=== PATIENT | male | born 1985 | race Caucasian/White ===

== ENCOUNTER 2016-11-01 00:11 | Inpatient (IN) | payer MEDICAID, OTHER ==
[2016-11-01 00:13] VITALS: BMI 23.7
[2016-11-01] MEDS ORDERED: Sodium Chloride 0.9% 1,000 ML IV STA (00:41)
--- NOTE | 2016-11-01 00:44 | ED PDOC ---
Arrival/HPI - General Historian: Patient - History of Present Illness Time/Duration: 1 week Symptom Onset: Gradual Symptom Course: Worsening Severity Level: 1 <Lesia Vidal - Last Filed: 11/01/16 01:54> <Jose R Garcia - Last Filed: 11/01/16 04:04> - General Chief Complaint: Psychiatric Evaluation Time Seen by Provider: 11/01/16 00:25 - History of Present Illness Narrative History of Present Illness (Text): 11/01/16 00:42 31-year-old male with a history of depression and anxiety presents today with suicidal ideations. Patient states he hasn't been sleeping and hasn't been eating for the past week or so. Patient states he has been shooting up with cocaine. He denies chest pain or shortness of breath. Denies abdominal pain. He is complaining of generalized body aches. Denies fevers or chills. Denies urinary symptoms. Denies suicidal plan. (Lesia Vidal) Past Medical History - Provider Review Nursing Documentation Reviewed: Yes - Travel History Have you recently traveled outside [place] w/in the past 3 mons?: No - Tetanus Immunization Tetanus Immunization: Unknown - Cardiac Hx Cardiac Disorders: No Hx Hypertension: No - Pulmonary Hx Respiratory Disorders: No Hx Tuberculosis: No - Neurological Hx Neurological Disorder: No HX Cerebrovascular Accident: No Hx Seizures: No - HEENT Hx HEENT Disorder: No - Renal Hx Renal Disorder: No - Endocrine/Metabolic Hx Endocrine Disorders: No - Hematological/Oncological Hx Blood Disorders: No Hx Hepatitis C: Yes - Integumentary Hx Dermatological Disorder: No - Musculoskeletal/Rheumatological Hx Musculoskeletal Disorders: No - Gastrointestinal Hx Gastrointestinal Disorders: No - Genitourinary/Gynecological Hx Genitourinary Disorders: No Hx Sexually Transmitted Diseases: No - Psychiatric Hx Anxiety: Yes Hx Depression: Yes Hx Substance Use: Yes (cocaine 4 hrs ago) - Past Surgical History Past Surgical History: No Previous - Anesthesia Hx Anesthesia: No - Suicidal Assessment Feels Threatened In Home Enviroment: No <Lesia Vidal - Last Filed: 11/01/16 01:54> Family/Social History - Physician Review Nursing Documentation Reviewed: Yes Family/Social History: Unknown Family HX Smoking Status: Heavy Smoker > 10 Cigarettes Daily Hx Alcohol Use: No Hx Substance Use: Yes (cocaine 4 hrs ago) Substance used: herion, cocaine, xanax, ambien Hx Substance Use Treatment: Yes <Lesia Vidal Last Filed: 11/01/16 01:54> Allergies/Home Meds <Lesia Vidal Last Filed: 11/01/16 01:54> <Jose R Garcia Last Filed: 11/01/16 04:04> Allergies/Adverse Reactions: Allergies No Known Allergies Allergy (Verified 11/01/16 00:30) Home Medications: Home Meds Medication Instructions Recorded Confirmed ALPRAZolam [Xanax] 1 mg PO DAILY 11/01/16 11/01/16 Buprenorphine HCl/Naloxone HCl 1 each SL DAILY 11/01/16 11/01/16 [Suboxone 8 mg-2 mg Sl Film] Review of Systems - Review of Systems Constitutional: Fatigue. absent: Fevers Respiratory: absent: SOB, Cough Cardiovascular: absent: Chest Pain, Palpitations Gastrointestinal: absent: Abdominal Pain, Nausea, Vomiting Genitourinary Male: absent: Dysuria, Frequency, Hematuria Musculoskeletal: absent: Arthralgias, Back Pain, Neck Pain Skin: absent: Rash, Pruritis Neurological: absent: Headache, Dizziness Psychiatric: Anxiety, Depression, Suicidal Ideation <Lesia Vidal Last Filed: 11/01/16 01:54> Physical Exam Vital Signs Reviewed: Yes Temperature: Afebrile Blood Pressure: Normal Pulse: Tachycardic Respiratory Rate: Normal Appearance: Positive for: Well-Appearing, Non-Toxic, Comfortable Pain Distress: None Mental Status: Positive for: Alert and Oriented X 3 - Systems Exam Head: Present: Atraumatic Neck: Present: Normal Range of Motion Respiratory/Chest: Present: Clear to Auscultation Cardiovascular: Present: Tachycardic Abdomen: Present: Normal Bowel Sounds. No: Tenderness, Distention, Peritoneal Signs Upper Extremity: Present: Normal Inspection, Normal ROM Lower Extremity: Present: Normal Inspection, Normal ROM Neurological: Present: GCS=15, Speech Normal Skin: Present: Warm, Dry, Normal Color. No: Rashes Psychiatric: Present: Alert, Oriented x 3, Depressed Mood <Lesia Vidal Last Filed: 11/01/16 01:54> Medical Decision Making <Lesia Vidal Last Filed: 11/01/16 01:54> <Jose R Garcia Filed: 11/01/16 04:04> ED Course and Treatment: 11/01/16 00:44 Patient is nontoxic well-appearing in no distress CBC WNL CMP WNL Tylenol WNL Salicylate WNL Alcohol level WNL Urine drug screen pending UA; pending cxr: wnl ekg normal sinus rhythm at 81 bpm incomplete right bundle branch block. normal axis and normal intervals no ST elevations 11/01/16 01:51 case signed out to dr. garcia pending Urine and disposition. (Lesia Vidal) 11/01/16 04:02 Pt seen and evaluated by PES screener, who discussed case with psychiatrist conductor yard. Pt will be admitted to behavioral health for bipolar disorder and polysubstance abuse under Dr. Jacobs's service. Pt agreeable with plan. ( Jose R Garcia) - Lab Interpretations Lab Results: 11/01/16 01:00 11/01/16 01:00 Lab Results 11/01/16 02:05: Urine Opiates Screen Negative, Urine Methadone Screen Negative, Ur Barbiturates Screen Negative, Ur Phencyclidine Scrn Negative, Ur Amphetamines Screen Negative, U Benzodiazepines Scrn Positive H, U Oth Cocaine Metabols Positive H, U Cannabinoids Screen Negative 11/01/16 01:45: Urine Color Yellow, Urine Appearance Clear, Urine pH 7.0, Ur Specific [place] 1.010, Urine Protein Negative, Urine Glucose (UA) Negative, Urine Ketones Negative, Urine Blood Negative, Urine Nitrate Negative, Urine Bilirubin Negative, Urine Urobilinogen 1.0 H, Ur Leukocyte Esterase Negative 11/01/16 01:00: Alcohol, Quantitative < 10 11/01/16 01:00: Salicylates < 1 L, Acetaminophen < 10.0 L 11/01/16 01:00: Sodium 138, Potassium 4.1, Chloride 100, Carbon Dioxide 29, Anion Gap 13, BUN 13, Creatinine 0.8, Est GFR ( Amer) > 60, Est GFR (Non- Af Amer) > 60, Random Glucose 77, Calcium 9.3, Total Bilirubin 0.4, AST 31, ALT 25, Alkaline Phosphatase 69, Total Creatine Kinase 103, Total Protein 6.9, Albumin 4.3, Globulin 2.5, Albumin/Globulin Ratio 1.7 11/01/16 01:00: WBC 8.4, RBC 4.29, Hgb 11.6 L, Hct 34.2 L, MCV 79.7 L, MCH 27.0 , MCHC 33.9, RDW 13.4, Plt Count 239, MPV 9.2, Gran % 65.7, Lymph % (Auto) 25.7 , [place] % (Auto) 6.0, Eos % (Auto) 2.4, Baso % (Auto) 0.2, Gran # 5.53, Lymph # 2.2, [place] # 0.5, Eos # 0.2, Baso # 0.02 - RAD Interpretation Radiology Orders: 11/01/16 00:41 CHEST PORTABLE [RAD] Stat - Medication Orders Current Medication Orders: Discontinued Medications Sodium Chloride (Sodium Chloride 0.9%) 1,000 mls @ 999 mls/hr IV .Q1H1M STA Stop: 11/01/16 01:41 Disposition/Present on Arrival - Present on Arrival History of DVT/PE: No History of Uncontrolled Diabetes: No Urinary Catheter: No History of Decub. Ulcer: No History Surgical Site Infection Following: None <Lesia Vidal - Last Filed: 11/01/16 01:54> - Present on Arrival Any Indicators Present on Arrival: No History of DVT/PE: No History of Uncontrolled Diabetes: No Urinary Catheter: No History of Decub. Ulcer: No History Surgical Site Infection Following: None - Disposition Have Diagnosis and Disposition been Completed?: Yes Disposition Time: 04:04 Patient Plan: Admission <Jose R Garcia - Last Filed: 11/01/16 04:04> - Disposition Diagnosis: Bipolar II disorder, Polysubstance dependence Disposition: HOSPITALIZED Condition: STABLE Forms: [employer] (German)
[2016-11-01 01:27] LABS: BASO # 0.02 K/mm3 (0.0-2.0); BASO % 0.2 % (0.0-3.0); EOS # 0.2 (0.0-0.7); EOS % 2.4 % (1.5-5.0); GRAN # 5.53 (1.4-6.5); GRAN % 65.7 % (50.0-68.0); HEMOGLOBIN 11.6 gm/dL (14.0-18.0); LYMPH # 2.2 (1.2-3.4); LYMPH % 25.7 % (22.0-35.0); MEAN CELL VOLUME 79.7 fL (80.0-105.0); MEAN CORPUSCULAR HGB CONC 33.9 g/dl (31.0-37.0); MEAN PLATELET VOLUME 9.2 fl (7.0-11.0); MONO # 0.5 (0.1-0.6); PLATELET COUNT 239 10^3/uL (120.0-450.0); RBC 4.29 10^6/uL (3.5-6.1); RED CELL DISTRIBUTION WIDTH 13.4 % (11.5-14.5); WHITE BLOOD COUNT 8.4 10^3/ul (4.5-11.0)
[2016-11-01 01:33] LABS: ALB/GLOB RATIO 1.7 (1.1-1.8); ALBUMIN 4.3 g/dL (3.0-4.8); ALT/SGPT 25 U/L (7-56); AST/SGOT 31 U/L (15-59); BLOOD UREA NITROGEN 13 mg/dL (7-21); CALCIUM 9.3 mg/dL (8.4-10.5); GFR AFRICAN-AMERICAN > 60; GFR NON-AFRICAN AMERICAN > 60
[2016-11-01 01:34] LABS: SALICYLATE < 1 mg/dL (2.0-20.0)
[2016-11-01 02:01] LABS: ACETAMINOPHEN < 10.0 ug/ml (10.0-20.0)
[2016-11-01 02:22] LABS: URINE BILIRUBIN NEGATIVE (NEGATIVE); URINE BLOOD NEGATIVE (NEGATIVE); URINE GLUCOSE (UA) NEGATIVE (NEGATIVE); URINE LEUKOCYTE ESTERASE NEGATIVE Leu/uL (NEGATIVE); URINE NITRATE NEGATIVE (NEGATIVE); URINE PROTEIN NEGATIVE mg/dL (<30 mg/dL)
[2016-11-01 02:34] LABS: URINE APPEARANCE CLEAR (CLEAR); URINE COLOR YELLOW (YELLOW)
[2016-11-01 03:13] LABS: BARBITURATES, UR NEGATIVE (NEGATIVE); BENZODIAZEPINES, UR POSITIVE (NEGATIVE); OPIATES, UR NEGATIVE (NEGATIVE); PHENCYCLIDINE, UR NEGATIVE (NEGATIVE)
[2016-11-01] MEDS ORDERED: Magnesium Hydroxide Susp 30 ml UD PO PRN (05:22)
[2016-11-01] MEDS ORDERED: Alum-Mag Hydrox-Simethicone Susp (30 mL) PO PRN (05:22)
--- NOTE | 2016-11-01 06:44 | PCM.BM ---
<Bossman Prado - Last Filed: 11/01/16 06:41> Treatment Plan Problems - Problems identified on initial assessmt depression Date Initiated: 11/01/16 Time Initiated: 05:00 Assessment reference: NA Status: Active substance abuse Date Initiated: 11/01/16 Time Initiated: 05:00 Assessment reference: NA Status: Active Treatment assets and liabiliti Patient Assests: cooperative, ADL independent, good past tx response Patient Liabilities: substance abuse - Milieu Protocol Maintain good personal hygiene: daily Encourage regular showers, daily Remind patient to perform daily oral care Conduct patient checks and document Observation sheet: Q15 minutes Maintain personal safety: daily Educate patient to report safety concerns to staff, every shift Monitor environment for contraband/sharps Medication safety: Monitor for expected outcome, potential side effects: daily, Assess barriers to learning: daily, Assess readiness for medication education: daily Family Contact Family involvement: Family/SO is involved Family contact: Patient agrees to contact Family contact name: Traci Discharge/Continuing Care - Education Needs Education Needs: Patient Medication, Patient Diagnosis/Disease Process, Patient Coping Skills, Patient Activities of Daily Living, Patient Health Practices/ Safety, Patient Personal Hygiene/Grooming - Discharge Discharge Criteria: Free of Suicidal thoughts, Normal sleep pattern, No longer exhibiting s/s of withdrawal <Desi Jacobs - Last Filed: 11/01/16 16:41> - Diagnosis (1) Bipolar II disorder Status: Acute Interventions: 11/01/16 16:41 Psychoeducation Psychopharmacology/adjustment of medications as needed/ monitoring possible side effects Monitor blood level of mood stabilizers Evaluate pt on daily basis Compliance with medications and follow up appointments Suicide and homicide risk assessment and prevention, coping strategies, safety plan Relapse prevention Reduction of symptoms Improve functional status Family intervention As outpatient: cognitive behavioral therapy (2) Polysubstance dependence Status: Acute Interventions: 11/01/16 16:42 Monitoring withdrawal symptoms Medical detoxification Pharmacotherapy for alcohol/benzos/opioid dependence Maintaining sobriety Relapse prevention Possible rehabilitation Motivational interviewing 12-step programs: AA meetings <Omar Lui - Last Filed: 11/01/16 19:14> Treatment assets and liabiliti Patient Assests: cooperative, educated, insightful, self-reliant, ADL independent, physically healthy, good support system, negotiates basic needs, cognitively intact Patient Liabilities: substance abuse - Milieu Protocol Maintain good personal hygiene: every shift Encourage regular showers, every shift Remind patient to perform daily oral care, every shift Assist patient to perform ADL's Maintain personal safety: every shift Educate patient to report safety concerns to staff, every shift Monitor environment for contraband/sharps Medication safety: Monitor for expected outcome, potential side effects: every shift, Assess barriers to learning: every shift, Assess readiness for medication education: every shift Discharge/Continuing Care - Education Needs Education Needs: Patient Medication, Patient Diagnosis/Disease Process, Patient Coping Skills - Discharge Discharge Criteria: Tolerates medication w/o severe side effects <Debbie Edwards - Last Filed: 11/11/16 08:19> Family Contact Family involvement: Patient does not wish Family/SO involvement
[2016-11-01 08:26] LABS: GLUCOSE,FASTING 93 mg/dL (65-110); HDL CHOLESTEROL 41 mg/dL (29-60)
[2016-11-01 08:36] LABS: LDL CHOLESTEROL 60 mg/dL (0-129)
--- NOTE | 2016-11-01 09:47 | RAD ---
HISTORY: pes COMPARISON: 08/14/2014 FINDINGS: LUNGS: No active pulmonary disease. PLEURA: No significant pleural effusion identified, no pneumothorax apparent. CARDIOVASCULAR: Normal. OSSEOUS STRUCTURES: No significant abnormalities. VISUALIZED UPPER ABDOMEN: Normal. OTHER FINDINGS: None. IMPRESSION: No active disease.
--- NOTE | 2016-11-01 10:07 | CARD ---
APPROVED REPORT EKG Measurement Heart [id number] <Conclusion> Normal sinus rhythm Incomplete right bundle branch block No change
--- NOTE | 2016-11-01 15:13 | PCM.PSYCH ---
Initial Psychiatric Evaluation - Initial Psychiatric Evaluation Type of Admission: Voluntary Legal Status: Capacity (pt has capacity to sign consent for tx. ) Chief Complaint (in patient's own words): "I wanted to , that is why I am here" Patient's Reaction to Hospitalization: pt was admitted for eval of depressive symptoms, possible suicidal ideation with no plan to kill himself. History of Present Illness and Precipitating Events: Shortly pt is 31yo [place] descent male with self reported history of depression , h/o polysubstance abuse and dependence, two prior hospitalizations in this facility about two years ago, currently unemployed, lives with parents, was brought to the hospital for evaluation of depressive symptoms as well as possible suicidal ideation, no plan or intent of killing himself. Pt was seen and examined at the tx team meeting, discussed with staff, labs reviewed. Pt presented to be with good personal hygiene, not shaved, appears to be depressed, hopeless, difficulties to concentrate and stay focused, overall was pleasant and socially appropriate, fare ADLs. pt said that he was clean and sober for the past two years, pt said that he started to feel depressed "low energy" about two months ago "it was getting worse", pt started to go to his PMD and asked for Adderal, benzos, suboxone, as well as relapsed on the cocaine. pt said that he was using cocaine IV 50$ a day. pt said that this situation is making him very depressed and hopeless, pt said that he wanted to and that is why he came to the hospital. pt said that he does not hear voices or seeing things. denied paranoid ideation. pt also reported no anxiety symptoms. but as per previous report pt has TESFAYE. past psych h/o: pt had one suicidal attempt in 2014, overdosed on drugs, h/o opioid addiction. pt was going to [facility], but stopped going there two months ago, h/ o hypomanic episodes, was doing well on [place] asked to be resumed. Medical h/o: pt has h/o low testosteron, pt is on testosterone shots, hep C antibody positive but as per ID team from last admission, pt has no active disease. Education: pt reported to be in regular class and regular school "I was very smart, straight A student", no behavioral issues, had good childhood and a lot of friends. pt does not want his parents to be involved into his care. 11/01/16 01:00 11/01/16 01:00 Lab Results 11/01/16 07:45: TSH 3rd Generation 1.26 11/01/16 07:45: Fasting Glucose 93, Triglycerides 36, Cholesterol 112 L, LDL Cholesterol Direct 60, HDL Cholesterol 41 11/01/16 02:05: Urine Opiates Screen Negative, Urine Methadone Screen Negative, Ur Barbiturates Screen Negative, Ur Phencyclidine Scrn Negative, Ur Amphetamines Screen Negative, U Benzodiazepines Scrn Positive H, U Oth Cocaine Metabols Positive H, U Cannabinoids Screen Negative 11/01/16 01:45: Urine Color Yellow, Urine Appearance Clear, Urine pH 7.0, Ur Specific [place] 1.010, Urine Protein Negative, Urine Glucose (UA) Negative, Urine Ketones Negative, Urine Blood Negative, Urine Nitrate Negative, Urine Bilirubin Negative, Urine Urobilinogen 1.0 H, Ur Leukocyte Esterase Negative 11/01/16 01:00: Alcohol, Quantitative < 10 11/01/16 01:00: Salicylates < 1 L, Acetaminophen < 10.0 L 11/01/16 01:00: Sodium 138, Potassium 4.1, Chloride 100, Carbon Dioxide 29, Anion Gap 13, BUN 13, Creatinine 0.8, Est GFR ( Amer) > 60, Est GFR (Non- Af Amer) > 60, Random Glucose 77, Calcium 9.3, Total Bilirubin 0.4, AST 31, ALT 25, Alkaline Phosphatase 69, Total Creatine Kinase 103, Total Protein 6.9, Albumin 4.3, Globulin 2.5, Albumin/Globulin Ratio 1.7 11/01/16 01:00: WBC 8.4, RBC 4.29, Hgb 11.6 L, Hct 34.2 L, MCV 79.7 L, MCH 27.0 , MCHC 33.9, RDW 13.4, Plt Count 239, MPV 9.2, Gran % 65.7, Lymph % (Auto) 25.7 , [place] % (Auto) 6.0, Eos % (Auto) 2.4, Baso % (Auto) 0.2, Gran # 5.53, Lymph # 2.2, [place] # 0.5, Eos # 0.2, Baso # 0.02 Vital Signs Temp Pulse Resp BP Pulse Ox 11/01/16 06:54 97.3 F L 70 16 124/79 100 11/01/16 04:26 69 18 126/86 95 11/01/16 01:37 82 16 94 L 11/01/16 00:31 97.9 F 110 H 20 122/77 95 Current Medications: Active Medications Generic Name Dose Route Start Last Admin Trade Name Freq PRN Reason Stop Dose Admin Acetaminophen 650 mg 11/01/16 05:22 Tylenol 325mg Tab PO Q4H PRN Pain, Mild (1-3) Al Hydrox/Mg Hydrox/Simethicone 30 ml 11/01/16 05:22 Maalox Plus 30 Ml PO DAILY PRN Upset Stomach Bupropion HCl 75 mg 11/01/16 16:00 Wellbutrin PO BID RUY Clonazepam 1 mg 11/01/16 13:00 11/01/16 14:31 Klonopin PO 1 mg TID RUY Administration Protocol [place] Carbonate 300 mg 11/01/16 16:00 [place] Carbonate 300mg PO BID RUY Magnesium Hydroxide 30 ml 11/01/16 05:22 Milk Of Magnesia PO DAILY PRN Constipation Mirtazapine 15 mg 11/01/16 11:51 Remeron PO HS PRN Insomnia Past Psychiatric History - Past Psychiatric History Previous Treatment History: Inpatient Prior Professional Help: see HPI Prior Psychiatric Treatment: see HPI At what hospital: see HPI Duration: see HPI Nature of Treatment: see HPI Explanation of prior treatment: see HPI History of Abuse: denied History of ETOH/Drug Use: see HPI History of Family Illness: denied Pertinent Medical Hx (Current Medical&Sleep Prob, Allergies): Allergies Allergy/AdvReac Type Severity Reaction Status Date / Time No Known Allergies Allergy Verified 11/01/16 06:07 ALPRAZolam [Xanax] 1 mg PO DAILY 11/01/16 Buprenorphine HCl/Naloxone HCl [Suboxone 8 mg-2 mg Sl Film] 1 each SL DAILY Review of Systems - Review of Systems Systems not reviewed;Unavailable: Acuity of Condition - EENT Eyes: As Per HPI Ears: As Per HPI Nose/Mouth/Throat: As Per HPI - Cardiovascular Cardiovascular: As Per HPI - Respiratory Respiratory: As Per HPI - Gastrointestinal Gastrointestinal: As Per HPI - Genitourinary Genitourinary: As Per HPI - Reproductive: Male Reproductive:Male: As Per HPI - Musculoskeletal Musculoskeletal: As Par HPI - Integumentary Integumentary: As Per HPI - Neurological Neurological: As Per HPI - Psychiatric Psychiatric: As Per HPI - Endocrine Endocrine: As Per HPI - Hematologic/Lymphatic Hematologic: As Per HPI Mental Status Examination - Personal Presentation Personal Presentation: Looks stated age - Affect Affect: Flat - Motor Activity Motor Activity: Psychomotor Retardation - Reliability in Providing Information Reliability in Providing Information: Fair - Speech Speech: Organized - Mood Mood: Depressed - Formal Thought Process Formal Thought Process: No Impairment - Obsessions/Compulsions Obsessions: None Compulsions: None - Cognitive Functions Orientation: Person, Place, Situation Sensorium: Alert Attention/Concentration: Easily distracted Abstract Thinking: [place] Estimate of Intelligence: Average Judgement: Intact, as evidence by: Insight regarding need for hospitalization - Risk Risk: Withdrawal, Self-mutilation - Strength & Assets Inventory Strength & Assets Inventory: Intelligence, Family support, Cooperative - Limitations Limitations: Other (chronic substance abuser, noncompliant with tx ) DSM 5 DX - DSM 5 DSM 5 Diagnosis: bipolar II as per h/o r/o substance induced mood disorder polysubstance abuse and dependence (benzos, cocaine, amphetamines, opioids) - Recommended/Plan of Treatment Treatment Recommendations and Plan of Treatment: milieu/structure/supportive therapy will d/c xanax, will give klonopin 1mg tid with the plan to taper it off, to avoid possible withdrawal seizures( h/o withdrawal seizures) will d/c suboxone, will start methadone 25mg with the plan to taper it down will start [place] 300mg bid for mood stabilization wellbutrin 75mg po bid for mdd remeron 15mg hs prn for insomnia and depression SW evaluation for possible rehab will monitor closely Projected ELOS: 7days Prognosis: guarded Discharge Plan and Discharge Criteria: Pt will be not depressed or manic, will be more hopeful, will be not psychotic or anxious, will be not having thoughts of harming self or others, will be tolerating medications well, will not have major side effects, will be able to function, will not pose threat to self or others. - Smoking Cessation Smoking Cessation Initiated: No Reason for not providing: denied smoking
--- NOTE | 2016-11-01 17:54 | CP.PCM.CON ---
<Eddie Knight - Last Filed: 11/01/16 17:51> History of Present Illness - History of Present Illness History of Present Illness: Patient is a 31 year old male with a past medical history of hepatitis C, anemia , anxiety and depression, who presented with suicidal ideation. He complains of extreme fatigue for the past 3 months and generalized joint/bone pain. Pt states the pain is resolved after he gets moving in the morning. He reports sleeping more in the past three months. He smokes cigarettes and uses cocaine ( IV route) but denies alcohol use. He denies associated fever, chills, n/v/d. PMH: hepatitis C, anemia, anxiety and depression PSH: none Allergies: denies FMH: mother has HTN, grandmother had lung cancer Social: smokes 1 ppd for 10 years, uses cocaine, history of heroin use, denies alcohol usage Meds: - Xanax - Suboxone Review of Systems - Hematologic/Lymphatic Additional comments: Constitutional: pt denies fever, chills, generalized weakness ENT: pt denies dysphagia, otalgia, hearing deficit, rhinorrhea Eyes: pt denies sudden loss of vision, diplopia, blurred vision MSK: pt denies muscle stiffness, extremity cramping Cardio: pt denies heart murmur, cp Pulm: pt denies sob, cough, hemoptysis, wheeze GI: pt denies loss of appetite, abdominal pain, constipation, melena, n/v/d : pt denies burning on urination, urinary frequency, hematuria, urinary urgency Neuro: pt denies paresis, V[place]AZ[place], paresthesia, dizziness, numbness, tingling Derm: pt denies nail changes Endo: pt denies night sweats, polydipsia Psych: + anxiety, depression Past Patient History - Tetanus Immunizations Tetanus Immunization: Unknown - Past Social History Smoking Status: Heavy Smoker > 10 Cigarettes Daily Alcohol: None Drugs: Cocaine, Other (history of heroin) - CARDIAC Hx Cardiac Disorders: No Hx Hypertension: No - PULMONARY Hx Tuberculosis: No - NEUROLOGICAL HX Cerebrovascular Accident: No Hx Seizures: No - HEENT Hx HEENT Problems: No - RENAL Hx Chronic Kidney Disease: No - ENDOCRINE/METABOLIC Hx Endocrine Disorders: No - HEMATOLOGICAL/ONCOLOGICAL Hx Blood Disorders: No Hx Hepatitis C: Yes - INTEGUMENTARY Hx Dermatological Problems: No - MUSCULOSKELETAL/RHEUMATOLOGICAL Hx Musculoskeletal Disorders: No - GASTROINTESTINAL Hx Gastrointestinal Disorders: No - GENITOURINARY/GYNECOLOGICAL Hx Sexually Transmitted Disorders: No - PSYCHIATRIC Hx Bipolar Disorder: Yes Hx Depression: Yes Hx Substance Use: Yes - SURGICAL HISTORY Hx Surgeries: No - ANESTHESIA Hx Anesthesia: No Meds Allergies/Adverse Reactions: Allergies Allergy/AdvReac Type Severity Reaction Status Date / Time No Known Allergies Allergy Verified 11/01/16 06:07 - Medications Medications: Current Medications Acetaminophen (Tylenol 325mg Tab) 650 mg PO Q4H PRN PRN Reason: Pain, Mild (1-3) Al Hydrox/Mg Hydrox/Simethicone (Maalox Plus 30 Ml) 30 ml PO DAILY PRN PRN Reason: Upset Stomach Bupropion HCl (Wellbutrin) 75 mg PO BID RUY Clonazepam (Klonopin) 1 mg PO TID RUY PRN Reason: Protocol Last Admin: 11/01/16 14:31 Dose: 1 mg [place] Carbonate ([place] Carbonate 300mg) 300 mg PO BID RUY Magnesium Hydroxide (Milk Of Magnesia) 30 ml PO DAILY PRN PRN Reason: Constipation Mirtazapine (Remeron) 15 mg PO HS PRN PRN Reason: Insomnia Physical Exam - Additional Findings Additional findings: Vital Signs as below Constitutional: a&o x 4 Head and Neck: neck supple, no jvd, trachea midline, carotid midline, no cervical/head mass Eyes: yessica, nonicteric sclera, eom intact ENT: auditory acuity grossly intact, throat not congested, no nasal deformity Cardio: rrr, no m/r/g, no carotid bruit, nml s1, s2 Pulm: no accessory muscle use, equal nml breath sounds bilaterally, ctab Abd: s/nt/nd, nbs x 4 q, no palpable masses Derm: no rashes, no ulcers Extr: no cyanosis, no edema, no calf tenderness, no lesions, no varicosities Neuro: cn II-XII grossly intact, ue and le 5/5 muscle strength bilaterally, no los ue, le bilaterally and core Results - Vital Signs Recent Vital Signs: Last Vital Signs Temp 97.3 F L 11/01/16 06:54 Pulse 72 11/01/16 16:00 Resp 16 11/01/16 06:54 BP 121/70 11/01/16 16:00 Pulse Ox 100 11/01/16 06:54 - Labs Result Diagrams: 11/01/16 01:00 11/01/16 01:00 Labs: Laboratory Results - last 24 hr 11/01/16 11/01/16 11/01/16 07:45 07:45 07:45 Fasting Glucose 93 Triglycerides 36 Cholesterol 112 L LDL Cholesterol Direct 60 HDL Cholesterol 41 TSH 3rd Generation 1.26 RPR Nonreactive Assessment & Plan - Assessment and Plan (Free Text) Assessment: Pt is a 31 year old male with past medical history of substance abuse, depression and anxiety who presents for suicidal ideation Plan: 1. Multi poly-substance abuse - Pt Toxicology screen positive for cocaine and benzo - recommend smoking cessation - recommend cessation of IV drug usage - increase his nutritional intake Recommendation: At this time the patient is to be considered medically stable. No medical intervention is necessary at this time. Will re-consult if necessary. - Date & Time Date: 11/01/16 Time: 18:01 <Ramon Houser MD - Last Filed: 11/05/16 16:48> Meds - Medications Medications: Current Medications Al Hydrox/Mg Hydrox/Simethicone (Maalox Plus 30 Ml) 30 ml PO DAILY PRN PRN Reason: Upset Stomach Bupropion HCl (Wellbutrin) 100 mg PO TID [facility] Last Admin: 11/05/16 13:13 Dose: 100 mg Clonazepam (Klonopin) 0.5 mg PO TID [facility] PRN Reason: Protocol Last Admin: 11/05/16 13:13 Dose: 0.5 mg Clonidine HCl (Catapres) 0.1 mg PO BID PRN PRN Reason: opioid withdrawals Gabapentin (Neurontin) 300 mg PO TID [facility] PRN Reason: Protocol Last Admin: 11/05/16 13:13 Dose: 300 mg Ibuprofen (Motrin Tab) 600 mg PO Q6H PRN PRN Reason: pain moderate 7/10, fever Last Admin: 11/04/16 21:23 Dose: 600 mg [place] Carbonate ([place] Carbonate 300mg) 300 mg PO BID [facility] Last Admin: 11/05/16 08:43 Dose: 300 mg Loperamide HCl (Imodium) 2 mg PO QID PRN PRN Reason: Diarrhea Magnesium Hydroxide (Milk Of Magnesia) 30 ml PO DAILY PRN PRN Reason: Constipation Mirtazapine (Remeron) 30 mg PO [facility] Multivitamins (Thera Tab) 1 tab PO 0800 RUY Last Admin: 11/05/16 08:42 Dose: 1 tab Nicotine (Nicoderm Cq) 1 patch TD DAILY RUY Last Admin: 11/05/16 08:42 Dose: 1 patch Results - Vital Signs Recent Vital Signs: Last Vital Signs Temp 96.4 F L 11/05/16 07:00 Pulse 68 11/05/16 16:04 Resp 16 11/05/16 07:00 BP 101/60 11/05/16 16:04 Pulse Ox 98 11/02/16 06:35 - Labs Result Diagrams: 11/01/16 01:00 11/01/16 01:00 Attending/Attestation - Attestation I have personally seen and examined this patient.: Yes I have fully participated in the care of the patient.: Yes I have reviewed all pertinent clinical information: Yes Notes (Text): 11/05/16 16:44 Patient was seen and examined with biomedical equipment technician. 29 year old male who is currently admitted under psychiatric service for evaluation of depression. Patient has H/O Hep C antibodies positive, but LFT are normal, viral load was negative, no need for any treatment at this time, avoid alcohol abuse.This was discussed in detail. Patient reported weight loss over the past one year. Ct chest, abdomen and pelvis were done last admission, were normal, no weight lose in last 3 month, no need fro any further work up Substance abuse / smoking history - He was counselled on smoking cessation and on risks of substance abuse. There is no active medical issue at this time, we will sign off. Thank you Dr. Jacobs for allowing me to participate in the care of this patient. Please re-consult as needed.
[2016-11-02 06:37] VITALS: O2SAT 98
--- NOTE | 2016-11-02 14:34 | PCM.PYCHPN ---
Psychiatric Progress Note - Psychiatric Progress Note Patient seen today, length of contact: 30min Patient Chief Complaint: "I feel weak, dizzy" Problems Identified/Issues Discussed: Suicide/ homicide prevention, past psychiatric h/o, current psychiatric symptoms , medical problems, risk/benefits and alternatives of medications, medications compliance, coping strategies, substance abuse h/o, relapse prevention, importance of follow up with psychiatrist and therapist, discharge plan. Medical Problems: low testosterone Diagnostic Results: 11/01/16 11/01/16 11/01/16 07:45 07:45 07:45 WBC RBC Hgb Hct MCV MCH MCHC RDW Plt Count MPV Gran % Lymph % (Auto) [place] % (Auto) Eos % (Auto) Baso % (Auto) Gran # Lymph # [place] # Eos # Baso # Sodium Potassium Chloride Carbon Dioxide Anion Gap BUN Creatinine Est GFR ( Amer) Est GFR (Non-Af Amer) Random Glucose Fasting Glucose 93 Calcium Total Bilirubin AST ALT Alkaline Phosphatase Total Creatine Kinase Total Protein Albumin Globulin Albumin/Globulin Ratio Triglycerides 36 Cholesterol 112 L LDL Cholesterol Direct 60 HDL Cholesterol 41 TSH 3rd Generation 1.26 Urine Color Urine Appearance Urine pH Ur Specific [place] Urine Protein Urine Glucose (UA) Urine Ketones Urine Blood Urine Nitrate Urine Bilirubin Urine Urobilinogen Ur Leukocyte Esterase Salicylates Urine Opiates Screen Urine Methadone Screen Acetaminophen Ur Barbiturates Screen Ur Phencyclidine Scrn Ur Amphetamines Screen U Benzodiazepines Scrn U Oth Cocaine Metabols U Cannabinoids Screen Alcohol, Quantitative RPR Nonreactive 11/01/16 11/01/16 11/01/16 02:05 01:45 01:00 WBC RBC Hgb Hct MCV MCH MCHC RDW Plt Count MPV Gran % Lymph % (Auto) [place] % (Auto) Eos % (Auto) Baso % (Auto) Gran # Lymph # [place] # Eos # Baso # Sodium Potassium Chloride Carbon Dioxide Anion Gap BUN Creatinine Est GFR ( Amer) Est GFR (Non-Af Amer) Random Glucose Fasting Glucose Calcium Total Bilirubin AST ALT Alkaline Phosphatase Total Creatine Kinase Total Protein Albumin Globulin Albumin/Globulin Ratio Triglycerides Cholesterol LDL Cholesterol Direct HDL Cholesterol TSH 3rd Generation Urine Color Yellow Urine Appearance Clear Urine pH 7.0 Ur Specific [place] 1.010 Urine Protein Negative Urine Glucose (UA) Negative Urine Ketones Negative Urine Blood Negative Urine Nitrate Negative Urine Bilirubin Negative Urine Urobilinogen 1.0 H Ur Leukocyte Esterase Negative Salicylates Urine Opiates Screen Negative Urine Methadone Screen Negative Acetaminophen Ur Barbiturates Screen Negative Ur Phencyclidine Scrn Negative Ur Amphetamines Screen Negative U Benzodiazepines Scrn Positive H U Oth Cocaine Metabols Positive H U Cannabinoids Screen Negative Alcohol, Quantitative < 10 RPR 11/01/16 11/01/16 11/01/16 01:00 01:00 01:00 WBC 8.4 RBC 4.29 Hgb 11.6 L Hct 34.2 L MCV 79.7 L MCH 27.0 MCHC 33.9 RDW 13.4 Plt Count 239 MPV 9.2 Gran % 65.7 Lymph % (Auto) 25.7 [place] % (Auto) 6.0 Eos % (Auto) 2.4 Baso % (Auto) 0.2 Gran # 5.53 Lymph # 2.2 [place] # 0.5 Eos # 0.2 Baso # 0.02 Sodium 138 Potassium 4.1 Chloride 100 Carbon Dioxide 29 Anion Gap 13 BUN 13 Creatinine 0.8 Est GFR ( Amer) > 60 Est GFR (Non-Af Amer) > 60 Random Glucose 77 Fasting Glucose Calcium 9.3 Total Bilirubin 0.4 AST 31 ALT 25 Alkaline Phosphatase 69 Total Creatine Kinase 103 Total Protein 6.9 Albumin 4.3 Globulin 2.5 Albumin/Globulin Ratio 1.7 Triglycerides Cholesterol LDL Cholesterol Direct HDL Cholesterol TSH 3rd Generation Urine Color Urine Appearance Urine pH Ur Specific [place] Urine Protein Urine Glucose (UA) Urine Ketones Urine Blood Urine Nitrate Urine Bilirubin Urine Urobilinogen Ur Leukocyte Esterase Salicylates < 1 L Urine Opiates Screen Urine Methadone Screen Acetaminophen < 10.0 L Ur Barbiturates Screen Ur Phencyclidine Scrn Ur Amphetamines Screen U Benzodiazepines Scrn U Oth Cocaine Metabols U Cannabinoids Screen Alcohol, Quantitative RPR Vital Signs Temp Pulse Resp BP Pulse Ox 11/02/16 06:35 97.5 F L 60 16 118/66 98 11/01/16 16:00 72 121/70 11/01/16 06:54 97.3 F L 70 16 124/79 100 11/01/16 04:26 69 18 126/86 95 11/01/16 01:37 82 16 94 L 11/01/16 00:31 97.9 F 110 H 20 122/77 95 DSM 5 Symptoms Update: Shortly pt is 31yo [place] descent male with self reported history of depression , h/o polysubstance abuse and dependence, two prior hospitalizations in this facility about two years ago, currently unemployed, lives with parents, was brought to the hospital for evaluation of depressive symptoms as well as possible suicidal ideation, no plan or intent of killing himself. Pt was seen and examined in his room, has good personal hygiene, but not shaved , appears to be depressed, hopeless, difficulties to concentrate and stay focused, overall was pleasant and socially appropriate, fare ADLs. pt said that he feels weak and dizzy, pt also c/o low energy and amotivation. pt reported no signs of benzos or opioid withdrawals pt reported to have fair appetite and sleep. pt reported that he feels depressed, hopeless. pt denied thoughts of harming self or others. pt tolerates meds well, no side effects observed or reported, AIMS 0, no EPS. Impression: bipolar II as per h/o r/o substance induced mood disorder polysubstance abuse and dependence (benzos, cocaine, amphetamines, opioids) Medication Change: Yes (methadone decreased, klonopin decreased) Medical Record Reviewed: Yes Consults ordered or reviewed: medical consultation appreciated pls see notes for more detailed information Mental Status Examination - Cognitive Function Orientation: Person, Place, Situation Memory: Intact Attention: Poor Concentration: Poor Association: WNL Fund of Knowledge: WNL - Mood Mood: Depressed - Affect Affect: Flat - Speech Speech: Appropriate - Formal Thought Process Formal Thought Process: No Impairment - Suicidal Ideation Suicidal Ideation: No - Homicidal Ideation Homicidal Ideation: No Goal/Treatment Plan - Goal/Treatment Plan Need for Continued Stay: Remain at risks for inpatient hospitalization, Severe depression anxiety, Discharge may exacerbated symptoms, Severe functional impairment Progress Toward Problem(s) and Goals/Treatment Plan: milieu/structure/supportive therapy methadone 20mg with the plan to taper it down [place] 300mg bid for mood stabilization wellbutrin 75mg po bid for mdd remeron 15mg hs prn for insomnia and depression medical consult appreciated mvi po daily will consider nutrition consult SW evaluation for possible rehab will monitor closely Estimated Date of D/C: 11/05/16
[2016-11-03] MEDS: Multivitamin Therapeutic Tab PO SCH (08:41)
--- NOTE | 2016-11-03 16:00 | PCM.PYCHPN ---
Psychiatric Progress Note - Psychiatric Progress Note Patient seen today, length of contact: 30min Patient Chief Complaint: "I do not have addiction problems, I was using drugs to feel better" Problems Identified/Issues Discussed: Suicide/ homicide prevention, past psychiatric h/o, current psychiatric symptoms , medical problems, risk/benefits and alternatives of medications, medications compliance, coping strategies, substance abuse h/o, relapse prevention, importance of follow up with psychiatrist and therapist, discharge plan. Medical Problems: low testosterone Diagnostic Results: 11/01/16 11/01/16 11/01/16 07:45 07:45 07:45 WBC RBC Hgb Hct MCV MCH MCHC RDW Plt Count MPV Gran % Lymph % (Auto) [place] % (Auto) Eos % (Auto) Baso % (Auto) Gran # Lymph # [place] # Eos # Baso # Sodium Potassium Chloride Carbon Dioxide Anion Gap BUN Creatinine Est GFR ( Amer) Est GFR (Non-Af Amer) Random Glucose Fasting Glucose 93 Calcium Total Bilirubin AST ALT Alkaline Phosphatase Total Creatine Kinase Total Protein Albumin Globulin Albumin/Globulin Ratio Triglycerides 36 Cholesterol 112 L LDL Cholesterol Direct 60 HDL Cholesterol 41 TSH 3rd Generation 1.26 Urine Color Urine Appearance Urine pH Ur Specific [place] Urine Protein Urine Glucose (UA) Urine Ketones Urine Blood Urine Nitrate Urine Bilirubin Urine Urobilinogen Ur Leukocyte Esterase Salicylates Urine Opiates Screen Urine Methadone Screen Acetaminophen Ur Barbiturates Screen Ur Phencyclidine Scrn Ur Amphetamines Screen U Benzodiazepines Scrn U Oth Cocaine Metabols U Cannabinoids Screen Alcohol, Quantitative RPR Nonreactive 11/01/16 11/01/16 11/01/16 02:05 01:45 01:00 WBC RBC Hgb Hct MCV MCH MCHC RDW Plt Count MPV Gran % Lymph % (Auto) [place] % (Auto) Eos % (Auto) Baso % (Auto) Gran # Lymph # [place] # Eos # Baso # Sodium Potassium Chloride Carbon Dioxide Anion Gap BUN Creatinine Est GFR ( Amer) Est GFR (Non-Af Amer) Random Glucose Fasting Glucose Calcium Total Bilirubin AST ALT Alkaline Phosphatase Total Creatine Kinase Total Protein Albumin Globulin Albumin/Globulin Ratio Triglycerides Cholesterol LDL Cholesterol Direct HDL Cholesterol TSH 3rd Generation Urine Color Yellow Urine Appearance Clear Urine pH 7.0 Ur Specific [place] 1.010 Urine Protein Negative Urine Glucose (UA) Negative Urine Ketones Negative Urine Blood Negative Urine Nitrate Negative Urine Bilirubin Negative Urine Urobilinogen 1.0 H Ur Leukocyte Esterase Negative Salicylates Urine Opiates Screen Negative Urine Methadone Screen Negative Acetaminophen Ur Barbiturates Screen Negative Ur Phencyclidine Scrn Negative Ur Amphetamines Screen Negative U Benzodiazepines Scrn Positive H U Oth Cocaine Metabols Positive H U Cannabinoids Screen Negative Alcohol, Quantitative < 10 RPR 11/01/16 11/01/16 11/01/16 01:00 01:00 01:00 WBC 8.4 RBC 4.29 Hgb 11.6 L Hct 34.2 L MCV 79.7 L MCH 27.0 MCHC 33.9 RDW 13.4 Plt Count 239 MPV 9.2 Gran % 65.7 Lymph % (Auto) 25.7 [place] % (Auto) 6.0 Eos % (Auto) 2.4 Baso % (Auto) 0.2 Gran # 5.53 Lymph # 2.2 [place] # 0.5 Eos # 0.2 Baso # 0.02 Sodium 138 Potassium 4.1 Chloride 100 Carbon Dioxide 29 Anion Gap 13 BUN 13 Creatinine 0.8 Est GFR ( Amer) > 60 Est GFR (Non-Af Amer) > 60 Random Glucose 77 Fasting Glucose Calcium 9.3 Total Bilirubin 0.4 AST 31 ALT 25 Alkaline Phosphatase 69 Total Creatine Kinase 103 Total Protein 6.9 Albumin 4.3 Globulin 2.5 Albumin/Globulin Ratio 1.7 Triglycerides Cholesterol LDL Cholesterol Direct HDL Cholesterol TSH 3rd Generation Urine Color Urine Appearance Urine pH Ur Specific [place] Urine Protein Urine Glucose (UA) Urine Ketones Urine Blood Urine Nitrate Urine Bilirubin Urine Urobilinogen Ur Leukocyte Esterase Salicylates < 1 L Urine Opiates Screen Urine Methadone Screen Acetaminophen < 10.0 L Ur Barbiturates Screen Ur Phencyclidine Scrn Ur Amphetamines Screen U Benzodiazepines Scrn U Oth Cocaine Metabols U Cannabinoids Screen Alcohol, Quantitative RPR Vital Signs Temp Pulse Resp BP Pulse Ox 11/02/16 06:35 97.5 F L 60 16 118/66 98 11/01/16 16:00 72 121/70 11/01/16 06:54 97.3 F L 70 16 124/79 100 11/01/16 04:26 69 18 126/86 95 11/01/16 01:37 82 16 94 L 11/01/16 00:31 97.9 F 110 H 20 122/77 95 Temp Pulse Resp BP Pulse Ox 97.5 F L 68 16 115/69 98 11/02/16 06:35 11/02/16 16:00 11/02/16 06:35 11/02/16 16:00 11/02/16 06:35 DSM 5 Symptoms Update: Shortly pt is 31yo [place] descent male with self reported history of depression , h/o polysubstance abuse and dependence, two prior hospitalizations in this facility about two years ago, currently unemployed, lives with parents, was brought to the hospital for evaluation of depressive symptoms as well as possible suicidal ideation, no plan or intent of killing himself. Pt was seen and examined at the treatment team meeting, has good personal hygiene, but not shaved, appears to be depressed, hopeless, difficulties to concentrate and stay focused, overall was pleasant and socially appropriate, fare ADLs. pt said that he feels weak and dizzy, pt also c/o low energy and amotivation. pt has poor insight into his addiction to the drugs, pt said "I was using drugs jut to feel better, feel normal". pt was using stimulants, using opioids, cocaine, benzodiazepines, pt was going to the different doctors and asking for different pain meds, pt also was using IV heroin and cocain. pt was given exercise "self reflection", was asked to think about himself what he likes and dislike. pt expressed no interest to go to inpatient rehab. pt reported no signs of benzos or opioid withdrawals pt reported to have fair appetite and sleep. pt tolerates meds well, no side effects observed or reported, AIMS 0, no EPS. Impression: bipolar II as per h/o r/o substance induced mood disorder polysubstance abuse and dependence (benzos, cocaine, amphetamines, opioids) Medication Change: Yes (methadone decreased, wellbutrin increased) Medical Record Reviewed: Yes Consults ordered or reviewed: medical consultation appreciated pls see notes for more detailed information Mental Status Examination - Cognitive Function Orientation: Person, Place, Situation Memory: Intact Attention: Poor Concentration: Poor Association: WNL Fund of Knowledge: WNL - Mood Mood: Depressed - Affect Affect: Flat - Speech Speech: Appropriate - Formal Thought Process Formal Thought Process: No Impairment - Suicidal Ideation Suicidal Ideation: No - Homicidal Ideation Homicidal Ideation: No Goal/Treatment Plan - Goal/Treatment Plan Need for Continued Stay: Remain at risks for inpatient hospitalization, Severe depression anxiety, Discharge may exacerbated symptoms, Severe functional impairment Progress Toward Problem(s) and Goals/Treatment Plan: milieu/structure/supportive therapy methadone 15mg with the plan to taper it down [place] 300mg bid for mood stabilization wellbutrin 100mg po bid for mdd remeron 15mg hs prn for insomnia and depression medical consult appreciated mvi po daily will consider nutrition consult SW evaluation for possible rehab will monitor closely Estimated Date of D/C: 11/09/16 (will monitor closely)
[2016-11-04] MEDS: Multivitamin Therapeutic Tab PO SCH (08:37)
[2016-11-04 14:07] LABS: FOLATE 9.3 ng/mL
--- NOTE | 2016-11-04 15:05 | PCM.PYCHPN ---
Psychiatric Progress Note - Psychiatric Progress Note Patient seen today, length of contact: 30min Patient Chief Complaint: "I have pain in my legs" Problems Identified/Issues Discussed: Suicide/ homicide prevention, past psychiatric h/o, current psychiatric symptoms , medical problems, risk/benefits and alternatives of medications, medications compliance, coping strategies, substance abuse h/o, relapse prevention, importance of follow up with psychiatrist and therapist, discharge plan. Medical Problems: low testosterone Diagnostic Results: 11/01/16 11/01/16 11/01/16 07:45 07:45 07:45 WBC RBC Hgb Hct MCV MCH MCHC RDW Plt Count MPV Gran % Lymph % (Auto) [place] % (Auto) Eos % (Auto) Baso % (Auto) Gran # Lymph # [place] # Eos # Baso # Sodium Potassium Chloride Carbon Dioxide Anion Gap BUN Creatinine Est GFR ( Amer) Est GFR (Non-Af Amer) Random Glucose Fasting Glucose 93 Calcium Total Bilirubin AST ALT Alkaline Phosphatase Total Creatine Kinase Total Protein Albumin Globulin Albumin/Globulin Ratio Triglycerides 36 Cholesterol 112 L LDL Cholesterol Direct 60 HDL Cholesterol 41 TSH 3rd Generation 1.26 Urine Color Urine Appearance Urine pH Ur Specific [place] Urine Protein Urine Glucose (UA) Urine Ketones Urine Blood Urine Nitrate Urine Bilirubin Urine Urobilinogen Ur Leukocyte Esterase Salicylates Urine Opiates Screen Urine Methadone Screen Acetaminophen Ur Barbiturates Screen Ur Phencyclidine Scrn Ur Amphetamines Screen U Benzodiazepines Scrn U Oth Cocaine Metabols U Cannabinoids Screen Alcohol, Quantitative RPR Nonreactive 11/01/16 11/01/16 11/01/16 02:05 01:45 01:00 WBC RBC Hgb Hct MCV MCH MCHC RDW Plt Count MPV Gran % Lymph % (Auto) [place] % (Auto) Eos % (Auto) Baso % (Auto) Gran # Lymph # [place] # Eos # Baso # Sodium Potassium Chloride Carbon Dioxide Anion Gap BUN Creatinine Est GFR ( Amer) Est GFR (Non-Af Amer) Random Glucose Fasting Glucose Calcium Total Bilirubin AST ALT Alkaline Phosphatase Total Creatine Kinase Total Protein Albumin Globulin Albumin/Globulin Ratio Triglycerides Cholesterol LDL Cholesterol Direct HDL Cholesterol TSH 3rd Generation Urine Color Yellow Urine Appearance Clear Urine pH 7.0 Ur Specific [place] 1.010 Urine Protein Negative Urine Glucose (UA) Negative Urine Ketones Negative Urine Blood Negative Urine Nitrate Negative Urine Bilirubin Negative Urine Urobilinogen 1.0 H Ur Leukocyte Esterase Negative Salicylates Urine Opiates Screen Negative Urine Methadone Screen Negative Acetaminophen Ur Barbiturates Screen Negative Ur Phencyclidine Scrn Negative Ur Amphetamines Screen Negative U Benzodiazepines Scrn Positive H U Oth Cocaine Metabols Positive H U Cannabinoids Screen Negative Alcohol, Quantitative < 10 RPR 11/01/16 11/01/16 11/01/16 01:00 01:00 01:00 WBC 8.4 RBC 4.29 Hgb 11.6 L Hct 34.2 L MCV 79.7 L MCH 27.0 MCHC 33.9 RDW 13.4 Plt Count 239 MPV 9.2 Gran % 65.7 Lymph % (Auto) 25.7 [place] % (Auto) 6.0 Eos % (Auto) 2.4 Baso % (Auto) 0.2 Gran # 5.53 Lymph # 2.2 [place] # 0.5 Eos # 0.2 Baso # 0.02 Sodium 138 Potassium 4.1 Chloride 100 Carbon Dioxide 29 Anion Gap 13 BUN 13 Creatinine 0.8 Est GFR ( Amer) > 60 Est GFR (Non-Af Amer) > 60 Random Glucose 77 Fasting Glucose Calcium 9.3 Total Bilirubin 0.4 AST 31 ALT 25 Alkaline Phosphatase 69 Total Creatine Kinase 103 Total Protein 6.9 Albumin 4.3 Globulin 2.5 Albumin/Globulin Ratio 1.7 Triglycerides Cholesterol LDL Cholesterol Direct HDL Cholesterol TSH 3rd Generation Urine Color Urine Appearance Urine pH Ur Specific [place] Urine Protein Urine Glucose (UA) Urine Ketones Urine Blood Urine Nitrate Urine Bilirubin Urine Urobilinogen Ur Leukocyte Esterase Salicylates < 1 L Urine Opiates Screen Urine Methadone Screen Acetaminophen < 10.0 L Ur Barbiturates Screen Ur Phencyclidine Scrn Ur Amphetamines Screen U Benzodiazepines Scrn U Oth Cocaine Metabols U Cannabinoids Screen Alcohol, Quantitative RPR Vital Signs Temp Pulse Resp BP Pulse Ox 11/02/16 06:35 97.5 F L 60 16 118/66 98 11/01/16 16:00 72 121/70 11/01/16 06:54 97.3 F L 70 16 124/79 100 11/01/16 04:26 69 18 126/86 95 11/01/16 01:37 82 16 94 L 11/01/16 00:31 97.9 F 110 H 20 122/77 95 Temp Pulse Resp BP Pulse Ox 97.5 F L 68 16 115/69 98 11/02/16 06:35 11/02/16 16:00 11/02/16 06:35 11/02/16 16:00 11/02/16 06:35 DSM 5 Symptoms Update: Shortly pt is 31yo [place] descent male with self reported history of depression , h/o polysubstance abuse and dependence, two prior hospitalizations in this facility about two years ago, currently unemployed, lives with parents, was brought to the hospital for evaluation of depressive symptoms as well as possible suicidal ideation, no plan or intent of killing himself. Pt was seen and examined in his room, has good personal hygiene, but not shaved , appears to be depressed, hopeless, difficulties to concentrate and stay focused, overall was pleasant and socially appropriate, fare ADLs. pt c/o muscle pain today in his LE, was given ibuprofen. pt still reported to be depressed, pt was given exercise "self reflection" but pt did not complete it. pt reported to have fair appetite and sleep. pt tolerates meds well, no side effects observed or reported, AIMS 0, no EPS. Impression: bipolar II as per h/o r/o substance induced mood disorder polysubstance abuse and dependence (benzos, cocaine, amphetamines, opioids) Medication Change: Yes (methadone decreased, wellbutrin increased, klonopin decreased) Medical Record Reviewed: Yes Consults ordered or reviewed: medical consultation appreciated pls see notes for more detailed information Mental Status Examination - Cognitive Function Orientation: Person, Place, Situation Memory: Intact Attention: Poor Concentration: Poor Association: WNL Fund of Knowledge: WNL - Mood Mood: Depressed - Affect Affect: Flat - Speech Speech: Appropriate - Formal Thought Process Formal Thought Process: No Impairment - Suicidal Ideation Suicidal Ideation: No - Homicidal Ideation Homicidal Ideation: No Goal/Treatment Plan - Goal/Treatment Plan Need for Continued Stay: Remain at risks for inpatient hospitalization, Severe depression anxiety, Discharge may exacerbated symptoms, Severe functional impairment Progress Toward Problem(s) and Goals/Treatment Plan: milieu/structure/supportive therapy methadone 10mg with the plan to taper it down klonopin 0.5mg po tid (pt was on this medication for possible benzo withdrawals) [place] 300mg bid for mood stabilization wellbutrin 100mg po tid for mdd remeron 15mg hs prn for insomnia and depression medical consult appreciated mvi po daily will consider nutrition consult SW evaluation for possible rehab will monitor closely Estimated Date of D/C: 11/09/16 (will monitor closely)
[2016-11-05] MEDS: Multivitamin Therapeutic Tab PO SCH (08:42)
--- NOTE | 2016-11-05 16:17 | PCM.PYCHPN ---
Psychiatric Progress Note - Psychiatric Progress Note Patient seen today, length of contact: 30min Patient Chief Complaint: "I do not feel good, I am withdrawing..I don't know from what either benzos or opioids" Problems Identified/Issues Discussed: Suicide/ homicide prevention, past psychiatric h/o, current psychiatric symptoms , medical problems, risk/benefits and alternatives of medications, medications compliance, coping strategies, substance abuse h/o, relapse prevention, importance of follow up with psychiatrist and therapist, discharge plan. Medical Problems: low testosterone Diagnostic Results: 11/01/16 11/01/16 11/01/16 07:45 07:45 07:45 WBC RBC Hgb Hct MCV MCH MCHC RDW Plt Count MPV Gran % Lymph % (Auto) [place] % (Auto) Eos % (Auto) Baso % (Auto) Gran # Lymph # [place] # Eos # Baso # Sodium Potassium Chloride Carbon Dioxide Anion Gap BUN Creatinine Est GFR ( Amer) Est GFR (Non-Af Amer) Random Glucose Fasting Glucose 93 Calcium Total Bilirubin AST ALT Alkaline Phosphatase Total Creatine Kinase Total Protein Albumin Globulin Albumin/Globulin Ratio Triglycerides 36 Cholesterol 112 L LDL Cholesterol Direct 60 HDL Cholesterol 41 TSH 3rd Generation 1.26 Urine Color Urine Appearance Urine pH Ur Specific [place] Urine Protein Urine Glucose (UA) Urine Ketones Urine Blood Urine Nitrate Urine Bilirubin Urine Urobilinogen Ur Leukocyte Esterase Salicylates Urine Opiates Screen Urine Methadone Screen Acetaminophen Ur Barbiturates Screen Ur Phencyclidine Scrn Ur Amphetamines Screen U Benzodiazepines Scrn U Oth Cocaine Metabols U Cannabinoids Screen Alcohol, Quantitative RPR Nonreactive 11/01/16 11/01/16 11/01/16 02:05 01:45 01:00 WBC RBC Hgb Hct MCV MCH MCHC RDW Plt Count MPV Gran % Lymph % (Auto) [place] % (Auto) Eos % (Auto) Baso % (Auto) Gran # Lymph # [place] # Eos # Baso # Sodium Potassium Chloride Carbon Dioxide Anion Gap BUN Creatinine Est GFR ( Amer) Est GFR (Non-Af Amer) Random Glucose Fasting Glucose Calcium Total Bilirubin AST ALT Alkaline Phosphatase Total Creatine Kinase Total Protein Albumin Globulin Albumin/Globulin Ratio Triglycerides Cholesterol LDL Cholesterol Direct HDL Cholesterol TSH 3rd Generation Urine Color Yellow Urine Appearance Clear Urine pH 7.0 Ur Specific [place] 1.010 Urine Protein Negative Urine Glucose (UA) Negative Urine Ketones Negative Urine Blood Negative Urine Nitrate Negative Urine Bilirubin Negative Urine Urobilinogen 1.0 H Ur Leukocyte Esterase Negative Salicylates Urine Opiates Screen Negative Urine Methadone Screen Negative Acetaminophen Ur Barbiturates Screen Negative Ur Phencyclidine Scrn Negative Ur Amphetamines Screen Negative U Benzodiazepines Scrn Positive H U Oth Cocaine Metabols Positive H U Cannabinoids Screen Negative Alcohol, Quantitative < 10 RPR 11/01/16 11/01/16 11/01/16 01:00 01:00 01:00 WBC 8.4 RBC 4.29 Hgb 11.6 L Hct 34.2 L MCV 79.7 L MCH 27.0 MCHC 33.9 RDW 13.4 Plt Count 239 MPV 9.2 Gran % 65.7 Lymph % (Auto) 25.7 [place] % (Auto) 6.0 Eos % (Auto) 2.4 Baso % (Auto) 0.2 Gran # 5.53 Lymph # 2.2 [place] # 0.5 Eos # 0.2 Baso # 0.02 Sodium 138 Potassium 4.1 Chloride 100 Carbon Dioxide 29 Anion Gap 13 BUN 13 Creatinine 0.8 Est GFR ( Amer) > 60 Est GFR (Non-Af Amer) > 60 Random Glucose 77 Fasting Glucose Calcium 9.3 Total Bilirubin 0.4 AST 31 ALT 25 Alkaline Phosphatase 69 Total Creatine Kinase 103 Total Protein 6.9 Albumin 4.3 Globulin 2.5 Albumin/Globulin Ratio 1.7 Triglycerides Cholesterol LDL Cholesterol Direct HDL Cholesterol TSH 3rd Generation Urine Color Urine Appearance Urine pH Ur Specific [place] Urine Protein Urine Glucose (UA) Urine Ketones Urine Blood Urine Nitrate Urine Bilirubin Urine Urobilinogen Ur Leukocyte Esterase Salicylates < 1 L Urine Opiates Screen Urine Methadone Screen Acetaminophen < 10.0 L Ur Barbiturates Screen Ur Phencyclidine Scrn Ur Amphetamines Screen U Benzodiazepines Scrn U Oth Cocaine Metabols U Cannabinoids Screen Alcohol, Quantitative RPR Vital Signs Temp Pulse Resp BP Pulse Ox 11/02/16 06:35 97.5 F L 60 16 118/66 98 11/01/16 16:00 72 121/70 11/01/16 06:54 97.3 F L 70 16 124/79 100 11/01/16 04:26 69 18 126/86 95 11/01/16 01:37 82 16 94 L 11/01/16 00:31 97.9 F 110 H 20 122/77 95 Temp Pulse Resp BP Pulse Ox 97.5 F L 68 16 115/69 98 11/02/16 06:35 11/02/16 16:00 11/02/16 06:35 11/02/16 16:00 11/02/16 06:35 Temp Pulse Resp BP Pulse Ox 96.4 F L 68 16 101/60 98 11/05/16 07:00 11/05/16 16:04 11/05/16 07:00 11/05/16 16:04 11/02/16 06:35 DSM 5 Symptoms Update: Shortly pt is 31yo [place] descent male with self reported history of depression , h/o polysubstance abuse and dependence, two prior hospitalizations in this facility about two years ago, currently unemployed, lives with parents, was brought to the hospital for evaluation of depressive symptoms as well as possible suicidal ideation, no plan or intent of killing himself. Pt was seen and examined next to the nursing station, has good personal hygiene , but not shaved, appears to be depressed, hopeless, difficulties to concentrate and stay focused, overall was pleasant and socially appropriate, fare ADLs. pt c/o muscle pain, diarrhea, muscle cramps, inability to sleep, worsening of depression. vitals are WNL, will add neurontin, clonidine, loperaminde. pt c/o insomnia, will increase remeron as per report pt's father keep bringing pt cigarettes, visits restricted. pt tolerates meds well, no side effects observed or reported, AIMS 0, no EPS. Impression: bipolar II as per h/o r/o substance induced mood disorder polysubstance abuse and dependence (benzos, cocaine, amphetamines, opioids) Medication Change: Yes (methadone weanned off, neurontin, clonidine, remeron incresed) Medical Record Reviewed: Yes Consults ordered or reviewed: medical consultation appreciated pls see notes for more detailed information Mental Status Examination - Cognitive Function Orientation: Person, Place, Situation Memory: Intact Attention: Poor Concentration: Poor Association: WNL Fund of Knowledge: WNL - Mood Mood: Depressed, Anxious - Affect Affect: Flat - Speech Speech: Appropriate - Formal Thought Process Formal Thought Process: No Impairment - Suicidal Ideation Suicidal Ideation: No - Homicidal Ideation Homicidal Ideation: No Goal/Treatment Plan - Goal/Treatment Plan Need for Continued Stay: Remain at risks for inpatient hospitalization, Severe depression anxiety, Discharge may exacerbated symptoms, Severe functional impairment Progress Toward Problem(s) and Goals/Treatment Plan: milieu/structure/supportive therapy methadone 5mg last dose klonopin 0.5mg po tid with plan to taper down accordingly [place] 300mg bid for mood stabilization wellbutrin 100mg po tid for mdd remeron 30mg hs prn for insomnia and depression neur[place] 300mg tid for mood stabilization, cravings loperamide for possible diarrhea medical consult appreciated mvi po daily will consider nutrition consult SW evaluation for possible rehab will monitor closely Estimated Date of D/C: 11/09/16 (will monitor closely)
--- NOTE | 2016-11-06 08:57 | PCM.PYCHPN ---
Psychiatric Progress Note - Psychiatric Progress Note Patient seen today, length of contact: 25 min Problems Identified/Issues Discussed: I reviewed assessment and recent notes. Patient was interviewed at bedside. He is alert and oriented x3. Patient reports no new concerns and has been tolerating medications well. Remains depressed however he denies any suicidal thoughts or thoughts to harm others. Affect is constricted. Sleep was restless as he is still withdrawing. Responses are relevant to questioning and he does not appear to be responding to internal stimuli. Patient denies hallucinations. Nursing notes indicate the patient has been visible on the unit with limited interaction with peers. There were no behavioral issues overnight. Diagnostic Results: bipolar II as per h/o r/o substance induced mood disorder polysubstance abuse and dependence (benzos, cocaine, amphetamines, opioids) Medication Change: No ( ) Medical Record Reviewed: Yes Mental Status Examination - Cognitive Function Orientation: Person, Place, Situation Memory: Intact Attention: WNL Concentration: Poor Association: WNL Fund of Knowledge: WNL - Mood Mood: Depressed, Anxious - Affect Affect: Flat - Speech Speech: Appropriate - Formal Thought Process Formal Thought Process: No Impairment - Suicidal Ideation Suicidal Ideation: No - Homicidal Ideation Homicidal Ideation: No Goal/Treatment Plan - Goal/Treatment Plan Need for Continued Stay: Remain at risks for inpatient hospitalization, Severe depression anxiety, Discharge may exacerbated symptoms, Severe functional impairment Progress Toward Problem(s) and Goals/Treatment Plan: * c/w current tx and plan * klonopin 0.5mg po tid with plan to taper down * no new weekend labs * vitals reviewed Selected Entries 11/05/16 11/06/16 16:04 07:45 Temperature 97.6 F Pulse Rate 68 67 Respiratory 20 Rate Blood Pressure 101/60 106/67 Estimated Date of D/C: 11/09/16 (will monitor closely)
[2016-11-06] MEDS: Multivitamin Therapeutic Tab PO SCH (09:26)
[2016-11-07] MEDS: Multivitamin Therapeutic Tab PO SCH (09:05)
--- NOTE | 2016-11-07 09:24 | PCM.PYCHPN ---
Psychiatric Progress Note - Psychiatric Progress Note Patient seen today, length of contact: 25 min Problems Identified/Issues Discussed: I reviewed recent notes and met with patient at bedside. He is alert and oriented x3. Patient reports no new concerns and has been tolerating medications well. Remains depressed however he denies any suicidal thoughts or thoughts to harm others. Affect is constricted. Sleep was restless as he is still withdrawing but he feels this is starting to get better. Responses are relevant to questioning and he does not appear to be responding to internal stimuli. Patient denies hallucinations. Nursing notes indicate the patient has been visible on the unit with limited interaction with peers. Doesn't appear to be in any physical distress. There were no behavioral issues over the weekend. Diagnostic Results: bipolar II as per h/o r/o substance induced mood disorder polysubstance abuse and dependence (benzos, cocaine, amphetamines, opioids) Medication Change: No ( ) Medical Record Reviewed: Yes Mental Status Examination - Cognitive Function Orientation: Person, Place, Situation Memory: Intact Attention: WNL Concentration: Poor Association: WNL Fund of Knowledge: WNL - Mood Mood: Depressed, Anxious - Affect Affect: Flat - Speech Speech: Appropriate - Formal Thought Process Formal Thought Process: No Impairment - Suicidal Ideation Suicidal Ideation: No - Homicidal Ideation Homicidal Ideation: No Goal/Treatment Plan - Goal/Treatment Plan Need for Continued Stay: Remain at risks for inpatient hospitalization, Severe depression anxiety, Discharge may exacerbated symptoms, Severe functional impairment Progress Toward Problem(s) and Goals/Treatment Plan: * c/w current tx and plan * klonopin 0.5mg po tid decreased to 0.5 mg po bid on 11/07/16, with plan to taper down * No new weekend labs * Vitals reviewed and noted below: Selected Entries 11/06/16 11/06/16 07:45 16:00 Temperature 97.6 F Pulse Rate 67 72 Respiratory 20 Rate Blood Pressure 106/67 110/70 Estimated Date of D/C: 11/09/16 (will monitor closely)
[2016-11-08] MEDS: Multivitamin Therapeutic Tab PO SCH (08:39)
--- NOTE | 2016-11-08 10:59 | PCM.BM ---
<Omar Lui - Last Filed: 11/08/16 10:59> Treatment Plan Problems - Problems identified on initial assessmt depression Date Initiated: 11/01/16 Time Initiated: 05:00 Assessment reference: NA Status: Active substance abuse Date Initiated: 11/01/16 Time Initiated: 05:00 Assessment reference: NA Status: Active Treatment assets and liabiliti Patient Assests: cooperative, educated, insightful, self-reliant, ADL independent, physically healthy, good support system, negotiates basic needs, cognitively intact Patient Liabilities: substance abuse - Milieu Protocol Maintain good personal hygiene: every shift Encourage regular showers, every shift Remind patient to perform daily oral care, every shift Assist patient to perform ADL's Conduct patient checks and document Observation sheet: Q15 minutes Maintain personal safety: every shift Educate patient to report safety concerns to staff, every shift Monitor environment for contraband/sharps Medication safety: Monitor for expected outcome, potential side effects: every shift, Assess barriers to learning: every shift, Assess readiness for medication education: every shift Milieu Narrative: * c/w current tx and plan * klonopin 0.5mg po tid decreased to 0.5 mg po bid on 11/07/16, with plan to taper down * No new weekend labs * Vitals reviewed and noted below: Selected Entries 11/06/16 11/06/16 07:45 16:00 Temperature 97.6 F Pulse Rate 67 72 Respiratory 20 Rate Blood Pressure 106/67 110/70 Family Contact Family involvement: Patient does not wish Family/SO involvement - Goals for Treatment Patient goals for treatment: "To get better." Discharge/Continuing Care - Education Needs Education Needs: Patient Medication, Patient Diagnosis/Disease Process, Patient Coping Skills, Patient Activities of Daily Living, Patient Health Practices/ Safety, Patient Personal Hygiene/Grooming - Discharge Discharge Criteria: Tolerates medication w/o severe side effects - Treatment Team Participation Patient/Family/SO Statement: * c/w current tx and plan * klonopin 0.5mg po tid decreased to 0.5 mg po bid on 11/07/16, with plan to taper down * No new weekend labs * Vitals reviewed and noted below: Selected Entries 11/06/16 11/06/16 07:45 16:00 Temperature 97.6 F Pulse Rate 67 72 Respiratory 20 Rate Blood Pressure 106/67 110/70 Treatment Plan Review - Problem depression Time Initiated: 05:00 substance abuse Time Initiated: 05:00 <Desi Jacobs - Last Filed: 11/10/16 13:43> - Diagnosis (1) Bipolar II disorder Status: Acute Interventions: 11/10/16 13:43 doing better, mood more stable denied any thoughts of harming self or others (2) Polysubstance dependence Status: Acute Interventions: 11/10/16 13:44 no withdrawals pt willing to participate in [facility] program after d/c pt does not want to be on any naltrexone or suboxone or methadone wants to be drugs free <Debbie Edwards - Last Filed: 11/11/16 08:19>
--- NOTE | 2016-11-08 16:01 | PCM.PYCHPN ---
Psychiatric Progress Note - Psychiatric Progress Note Patient seen today, length of contact: 30min Patient Chief Complaint: "I am better" Problems Identified/Issues Discussed: Suicide/ homicide prevention, past psychiatric h/o, current psychiatric symptoms , medical problems, risk/benefits and alternatives of medications, medications compliance, coping strategies, substance abuse h/o, relapse prevention, importance of follow up with psychiatrist and therapist, discharge plan. Medical Problems: low testosterone Diagnostic Results: 11/01/16 11/01/16 11/01/16 07:45 07:45 07:45 WBC RBC Hgb Hct MCV MCH MCHC RDW Plt Count MPV Gran % Lymph % (Auto) [place] % (Auto) Eos % (Auto) Baso % (Auto) Gran # Lymph # [place] # Eos # Baso # Sodium Potassium Chloride Carbon Dioxide Anion Gap BUN Creatinine Est GFR ( Amer) Est GFR (Non-Af Amer) Random Glucose Fasting Glucose 93 Calcium Total Bilirubin AST ALT Alkaline Phosphatase Total Creatine Kinase Total Protein Albumin Globulin Albumin/Globulin Ratio Triglycerides 36 Cholesterol 112 L LDL Cholesterol Direct 60 HDL Cholesterol 41 TSH 3rd Generation 1.26 Urine Color Urine Appearance Urine pH Ur Specific [place] Urine Protein Urine Glucose (UA) Urine Ketones Urine Blood Urine Nitrate Urine Bilirubin Urine Urobilinogen Ur Leukocyte Esterase Salicylates Urine Opiates Screen Urine Methadone Screen Acetaminophen Ur Barbiturates Screen Ur Phencyclidine Scrn Ur Amphetamines Screen U Benzodiazepines Scrn U Oth Cocaine Metabols U Cannabinoids Screen Alcohol, Quantitative RPR Nonreactive 11/01/16 11/01/16 11/01/16 02:05 01:45 01:00 WBC RBC Hgb Hct MCV MCH MCHC RDW Plt Count MPV Gran % Lymph % (Auto) [place] % (Auto) Eos % (Auto) Baso % (Auto) Gran # Lymph # [place] # Eos # Baso # Sodium Potassium Chloride Carbon Dioxide Anion Gap BUN Creatinine Est GFR ( Amer) Est GFR (Non-Af Amer) Random Glucose Fasting Glucose Calcium Total Bilirubin AST ALT Alkaline Phosphatase Total Creatine Kinase Total Protein Albumin Globulin Albumin/Globulin Ratio Triglycerides Cholesterol LDL Cholesterol Direct HDL Cholesterol TSH 3rd Generation Urine Color Yellow Urine Appearance Clear Urine pH 7.0 Ur Specific [place] 1.010 Urine Protein Negative Urine Glucose (UA) Negative Urine Ketones Negative Urine Blood Negative Urine Nitrate Negative Urine Bilirubin Negative Urine Urobilinogen 1.0 H Ur Leukocyte Esterase Negative Salicylates Urine Opiates Screen Negative Urine Methadone Screen Negative Acetaminophen Ur Barbiturates Screen Negative Ur Phencyclidine Scrn Negative Ur Amphetamines Screen Negative U Benzodiazepines Scrn Positive H U Oth Cocaine Metabols Positive H U Cannabinoids Screen Negative Alcohol, Quantitative < 10 RPR 11/01/16 11/01/16 11/01/16 01:00 01:00 01:00 WBC 8.4 RBC 4.29 Hgb 11.6 L Hct 34.2 L MCV 79.7 L MCH 27.0 MCHC 33.9 RDW 13.4 Plt Count 239 MPV 9.2 Gran % 65.7 Lymph % (Auto) 25.7 [place] % (Auto) 6.0 Eos % (Auto) 2.4 Baso % (Auto) 0.2 Gran # 5.53 Lymph # 2.2 [place] # 0.5 Eos # 0.2 Baso # 0.02 Sodium 138 Potassium 4.1 Chloride 100 Carbon Dioxide 29 Anion Gap 13 BUN 13 Creatinine 0.8 Est GFR ( Amer) > 60 Est GFR (Non-Af Amer) > 60 Random Glucose 77 Fasting Glucose Calcium 9.3 Total Bilirubin 0.4 AST 31 ALT 25 Alkaline Phosphatase 69 Total Creatine Kinase 103 Total Protein 6.9 Albumin 4.3 Globulin 2.5 Albumin/Globulin Ratio 1.7 Triglycerides Cholesterol LDL Cholesterol Direct HDL Cholesterol TSH 3rd Generation Urine Color Urine Appearance Urine pH Ur Specific [place] Urine Protein Urine Glucose (UA) Urine Ketones Urine Blood Urine Nitrate Urine Bilirubin Urine Urobilinogen Ur Leukocyte Esterase Salicylates < 1 L Urine Opiates Screen Urine Methadone Screen Acetaminophen < 10.0 L Ur Barbiturates Screen Ur Phencyclidine Scrn Ur Amphetamines Screen U Benzodiazepines Scrn U Oth Cocaine Metabols U Cannabinoids Screen Alcohol, Quantitative RPR Vital Signs Temp Pulse Resp BP Pulse Ox 11/02/16 06:35 97.5 F L 60 16 118/66 98 11/01/16 16:00 72 121/70 11/01/16 06:54 97.3 F L 70 16 124/79 100 11/01/16 04:26 69 18 126/86 95 11/01/16 01:37 82 16 94 L 11/01/16 00:31 97.9 F 110 H 20 122/77 95 Temp Pulse Resp BP Pulse Ox 97.5 F L 68 16 115/69 98 11/02/16 06:35 11/02/16 16:00 11/02/16 06:35 11/02/16 16:00 11/02/16 06:35 Temp Pulse Resp BP Pulse Ox 96.4 F L 68 16 101/60 98 11/05/16 07:00 11/05/16 16:04 11/05/16 07:00 11/05/16 16:04 11/02/16 06:35 DSM 5 Symptoms Update: Shortly pt is 31yo [place] descent male with self reported history of depression , h/o polysubstance abuse and dependence, two prior hospitalizations in this facility about two years ago, currently unemployed, lives with parents, was brought to the hospital for evaluation of depressive symptoms as well as possible suicidal ideation, no plan or intent of killing himself. Pt was seen and examined at the treatment team meeting, has good personal hygiene,shaved, appears to be less depressed, reported withdrawal symptoms are better, has future plans to go to the [facility], but does not want to go to the [facility]. sleep is better. pt tolerates meds well, no side effects observed or reported, AIMS 0, no EPS. possible d/c on tuesday Impression: bipolar II as per h/o r/o substance induced mood disorder polysubstance abuse and dependence (benzos, cocaine, amphetamines, opioids) Medication Change: Yes (klonopin decreased) Medical Record Reviewed: Yes Consults ordered or reviewed: medical consultation appreciated pls see notes for more detailed information Mental Status Examination - Cognitive Function Orientation: Person, Place, Situation Memory: Intact Attention: WNL Concentration: Poor (improvement) Association: WNL Fund of Knowledge: WNL - Mood Mood: Depressed (improvement), Anxious (improvement) - Affect Affect: Flat - Speech Speech: Appropriate - Formal Thought Process Formal Thought Process: No Impairment - Suicidal Ideation Suicidal Ideation: No - Homicidal Ideation Homicidal Ideation: No Goal/Treatment Plan - Goal/Treatment Plan Need for Continued Stay: Remain at risks for inpatient hospitalization, Severe depression anxiety, Discharge may exacerbated symptoms, Severe functional impairment Progress Toward Problem(s) and Goals/Treatment Plan: milieu/structure/supportive therapy methadone was d/c klonopin 0.5mg po hs then d/c [place] 300mg bid for mood stabilization wellbutrin 100mg po tid for mdd remeron 30mg hs prn for insomnia and depression neurontin 600mg tid for mood stabilization, cravings loperamide for possible diarrhea medical consult appreciated mvi po daily will consider nutrition consult SW evaluation for possible rehab will monitor closely Estimated Date of D/C: 11/10/16 (will monitor closely)
[2016-11-09 07:50] VITALS: RESP 20; TEMP 97.9
[2016-11-09] MEDS: Multivitamin Therapeutic Tab PO SCH (08:52)
--- NOTE | 2016-11-09 13:33 | PCM.PYCHPN ---
Psychiatric Progress Note - Psychiatric Progress Note Patient seen today, length of contact: 30min Patient Chief Complaint: "I am doing better" Problems Identified/Issues Discussed: Suicide/ homicide prevention, past psychiatric h/o, current psychiatric symptoms , medical problems, risk/benefits and alternatives of medications, medications compliance, coping strategies, substance abuse h/o, relapse prevention, importance of follow up with psychiatrist and therapist, discharge plan. Medical Problems: low testosterone Diagnostic Results: 11/01/16 11/01/16 11/01/16 07:45 07:45 07:45 WBC RBC Hgb Hct MCV MCH MCHC RDW Plt Count MPV Gran % Lymph % (Auto) [place] % (Auto) Eos % (Auto) Baso % (Auto) Gran # Lymph # [place] # Eos # Baso # Sodium Potassium Chloride Carbon Dioxide Anion Gap BUN Creatinine Est GFR ( Amer) Est GFR (Non-Af Amer) Random Glucose Fasting Glucose 93 Calcium Total Bilirubin AST ALT Alkaline Phosphatase Total Creatine Kinase Total Protein Albumin Globulin Albumin/Globulin Ratio Triglycerides 36 Cholesterol 112 L LDL Cholesterol Direct 60 HDL Cholesterol 41 TSH 3rd Generation 1.26 Urine Color Urine Appearance Urine pH Ur Specific [place] Urine Protein Urine Glucose (UA) Urine Ketones Urine Blood Urine Nitrate Urine Bilirubin Urine Urobilinogen Ur Leukocyte Esterase Salicylates Urine Opiates Screen Urine Methadone Screen Acetaminophen Ur Barbiturates Screen Ur Phencyclidine Scrn Ur Amphetamines Screen U Benzodiazepines Scrn U Oth Cocaine Metabols U Cannabinoids Screen Alcohol, Quantitative RPR Nonreactive 11/01/16 11/01/16 11/01/16 02:05 01:45 01:00 WBC RBC Hgb Hct MCV MCH MCHC RDW Plt Count MPV Gran % Lymph % (Auto) [place] % (Auto) Eos % (Auto) Baso % (Auto) Gran # Lymph # [place] # Eos # Baso # Sodium Potassium Chloride Carbon Dioxide Anion Gap BUN Creatinine Est GFR ( Amer) Est GFR (Non-Af Amer) Random Glucose Fasting Glucose Calcium Total Bilirubin AST ALT Alkaline Phosphatase Total Creatine Kinase Total Protein Albumin Globulin Albumin/Globulin Ratio Triglycerides Cholesterol LDL Cholesterol Direct HDL Cholesterol TSH 3rd Generation Urine Color Yellow Urine Appearance Clear Urine pH 7.0 Ur Specific [place] 1.010 Urine Protein Negative Urine Glucose (UA) Negative Urine Ketones Negative Urine Blood Negative Urine Nitrate Negative Urine Bilirubin Negative Urine Urobilinogen 1.0 H Ur Leukocyte Esterase Negative Salicylates Urine Opiates Screen Negative Urine Methadone Screen Negative Acetaminophen Ur Barbiturates Screen Negative Ur Phencyclidine Scrn Negative Ur Amphetamines Screen Negative U Benzodiazepines Scrn Positive H U Oth Cocaine Metabols Positive H U Cannabinoids Screen Negative Alcohol, Quantitative < 10 RPR 11/01/16 11/01/16 11/01/16 01:00 01:00 01:00 WBC 8.4 RBC 4.29 Hgb 11.6 L Hct 34.2 L MCV 79.7 L MCH 27.0 MCHC 33.9 RDW 13.4 Plt Count 239 MPV 9.2 Gran % 65.7 Lymph % (Auto) 25.7 [place] % (Auto) 6.0 Eos % (Auto) 2.4 Baso % (Auto) 0.2 Gran # 5.53 Lymph # 2.2 [place] # 0.5 Eos # 0.2 Baso # 0.02 Sodium 138 Potassium 4.1 Chloride 100 Carbon Dioxide 29 Anion Gap 13 BUN 13 Creatinine 0.8 Est GFR ( Amer) > 60 Est GFR (Non-Af Amer) > 60 Random Glucose 77 Fasting Glucose Calcium 9.3 Total Bilirubin 0.4 AST 31 ALT 25 Alkaline Phosphatase 69 Total Creatine Kinase 103 Total Protein 6.9 Albumin 4.3 Globulin 2.5 Albumin/Globulin Ratio 1.7 Triglycerides Cholesterol LDL Cholesterol Direct HDL Cholesterol TSH 3rd Generation Urine Color Urine Appearance Urine pH Ur Specific [place] Urine Protein Urine Glucose (UA) Urine Ketones Urine Blood Urine Nitrate Urine Bilirubin Urine Urobilinogen Ur Leukocyte Esterase Salicylates < 1 L Urine Opiates Screen Urine Methadone Screen Acetaminophen < 10.0 L Ur Barbiturates Screen Ur Phencyclidine Scrn Ur Amphetamines Screen U Benzodiazepines Scrn U Oth Cocaine Metabols U Cannabinoids Screen Alcohol, Quantitative RPR Vital Signs Temp Pulse Resp BP Pulse Ox 11/02/16 06:35 97.5 F L 60 16 118/66 98 11/01/16 16:00 72 121/70 11/01/16 06:54 97.3 F L 70 16 124/79 100 11/01/16 04:26 69 18 126/86 95 11/01/16 01:37 82 16 94 L 11/01/16 00:31 97.9 F 110 H 20 122/77 95 Temp Pulse Resp BP Pulse Ox 97.5 F L 68 16 115/69 98 11/02/16 06:35 11/02/16 16:00 11/02/16 06:35 11/02/16 16:00 11/02/16 06:35 Temp Pulse Resp BP Pulse Ox 96.4 F L 68 16 101/60 98 11/05/16 07:00 11/05/16 16:04 11/05/16 07:00 11/05/16 16:04 11/02/16 06:35 DSM 5 Symptoms Update: Shortly pt is 31yo [place] descent male with self reported history of depression , h/o polysubstance abuse and dependence, two prior hospitalizations in this facility about two years ago, currently unemployed, lives with parents, was brought to the hospital for evaluation of depressive symptoms as well as possible suicidal ideation, no plan or intent of killing himself. Pt was seen and examined next to the nursing station, has good personal hygiene, shaved, appears to be less depressed, reported withdrawal symptoms are better, has future plans to go to the [facility], but does not want to go to the [facility]. sleep is better. pt tolerates meds well, no side effects observed or reported, AIMS 0, no EPS. possible d/c on tuesday Impression: bipolar II as per h/o r/o substance induced mood disorder polysubstance abuse and dependence (benzos, cocaine, amphetamines, opioids) Medication Change: Yes (klonopin decreased) Medical Record Reviewed: Yes Consults ordered or reviewed: medical consultation appreciated pls see notes for more detailed information Mental Status Examination - Cognitive Function Orientation: Person, Place, Situation Memory: Intact Attention: WNL Concentration: Poor (improvement) Association: WNL Fund of Knowledge: WNL - Mood Mood: Depressed (improvement), Anxious (improvement) - Affect Affect: Flat - Speech Speech: Appropriate - Formal Thought Process Formal Thought Process: No Impairment - Suicidal Ideation Suicidal Ideation: No - Homicidal Ideation Homicidal Ideation: No Goal/Treatment Plan - Goal/Treatment Plan Need for Continued Stay: Remain at risks for inpatient hospitalization, Severe depression anxiety, Discharge may exacerbated symptoms, Severe functional impairment Progress Toward Problem(s) and Goals/Treatment Plan: milieu/structure/supportive therapy methadone was d/c klonopin d/c [place] 300mg bid for mood stabilization wellbutrin 100mg po tid for mdd remeron 30mg hs prn for insomnia and depression neurontin 600mg tid for mood stabilization, cravings loperamide for possible diarrhea medical consult appreciated mvi po daily will consider nutrition consult SW evaluation for possible rehab will monitor closely possible d/c tomorrow Estimated Date of D/C: 11/10/16 (will monitor closely)
[2016-11-10 07:23] VITALS: BP 131/96; PULSE 70
[2016-11-10] MEDS: Multivitamin Therapeutic Tab PO SCH (08:54)
--- NOTE | 2016-11-11 16:47 | PCM.PYCHDC ---
Mental Status Examination - Mental Status Examination Orientation: Person, Place, Situation, Time Memory: Intact Mood: Neutral Affect: Broad (and mood congruent) Speech: Appropriate Attention: WNL Concentration: WNL Association: WNL Fund of Knowledge: WNL Formal Thought Process: No Impairment Description of patient's judgement and insight: Pt has improved insight into mental and medical illness, pt was compliant with medications and unit rules and regulations, pt was going to groups, was calm, cooperative, socially appropriate, no behavioral incidents, no agitation, no aggression. Psychotic Thoughts and Behaviors: Pt denied v/a/t hallucinations, denied paranoid ideations, pt does not appear to be psychotic, and thought process is goal directed. Suicidal Ideation: No Current Homicidal Ideation?: No Plan: pt adamantly denied thoughts of harming self or others denied intent or plan. Discharge Summary - Discharge Note Reason for Hospitalization: pt was admitted for eval of depressive symptoms, possible suicidal ideation with no plan to kill himself. Psychiatric History (includes Medical, Family, Personal Hx): see HPI Laboratory Data: 11/01/16 01:00 11/01/16 01:00 Lab Results 11/04/16 07:00: Vitamin B12 586, Folate 9.3 11/01/16 07:45: RPR Nonreactive 11/01/16 07:45: TSH 3rd Generation 1.26 11/01/16 07:45: Fasting Glucose 93, Triglycerides 36, Cholesterol 112 L, LDL Cholesterol Direct 60, HDL Cholesterol 41 11/01/16 02:05: Urine Opiates Screen Negative, Urine Methadone Screen Negative, Ur Barbiturates Screen Negative, Ur Phencyclidine Scrn Negative, Ur Amphetamines Screen Negative, U Benzodiazepines Scrn Positive H, U Oth Cocaine Metabols Positive H, U Cannabinoids Screen Negative 11/01/16 01:45: Urine Color Yellow, Urine Appearance Clear, Urine pH 7.0, Ur Specific [place] 1.010, Urine Protein Negative, Urine Glucose (UA) Negative, Urine Ketones Negative, Urine Blood Negative, Urine Nitrate Negative, Urine Bilirubin Negative, Urine Urobilinogen 1.0 H, Ur Leukocyte Esterase Negative 11/01/16 01:00: Alcohol, Quantitative < 10 11/01/16 01:00: Salicylates < 1 L, Acetaminophen < 10.0 L 11/01/16 01:00: Sodium 138, Potassium 4.1, Chloride 100, Carbon Dioxide 29, Anion Gap 13, BUN 13, Creatinine 0.8, Est GFR ( Amer) > 60, Est GFR (Non- Af Amer) > 60, Random Glucose 77, Calcium 9.3, Total Bilirubin 0.4, AST 31, ALT 25, Alkaline Phosphatase 69, Total Creatine Kinase 103, Total Protein 6.9, Albumin 4.3, Globulin 2.5, Albumin/Globulin Ratio 1.7 11/01/16 01:00: WBC 8.4, RBC 4.29, Hgb 11.6 L, Hct 34.2 L, MCV 79.7 L, MCH 27.0 , MCHC 33.9, RDW 13.4, Plt Count 239, MPV 9.2, Gran % 65.7, Lymph % (Auto) 25.7 , [place] % (Auto) 6.0, Eos % (Auto) 2.4, Baso % (Auto) 0.2, Gran # 5.53, Lymph # 2.2, [place] # 0.5, Eos # 0.2, Baso # 0.02 Vital Signs Temp Pulse Resp BP Pulse Ox 11/10/16 07:22 97.9 F 70 20 131/96 H 11/09/16 16:00 73 125/77 11/09/16 07:49 97.9 F 60 20 107/70 11/08/16 15:32 79 118/70 11/07/16 16:00 73 131/78 11/07/16 07:00 97.8 F 64 22 106/63 11/06/16 16:00 72 110/70 11/06/16 07:45 97.6 F 67 20 106/67 11/05/16 16:04 68 101/60 11/05/16 07:00 96.4 F L 54 L 16 100/65 11/04/16 16:00 66 121/66 11/04/16 07:34 97.9 F 56 L 20 115/72 11/03/16 15:00 63 113/69 11/02/16 16:00 68 115/69 11/02/16 06:35 97.5 F L 60 16 118/66 98 11/01/16 16:00 72 121/70 11/01/16 06:54 97.3 F L 70 16 124/79 100 11/01/16 04:26 69 18 126/86 95 11/01/16 01:37 82 16 94 L 11/01/16 00:31 97.9 F 110 H 20 122/77 95 Consultations:: List each consultation separately and include: 1. Reason for request. 2. Findings. 3. Follow-up Consultations: medical consultation appreciated pls see notes for more detailed information Summary of Hospital Course include:: 1. Description of specific treatment plan utilized for patients during their course of treatmen. 2. Summarize the time- course for resolution of acute symptoms and/or regressed behaviors. 3. Describe issues identified and worked on during hospitalization. 4. Describe medication utilized. 5. Describe medical problems identified and treated. 6. Reassessment of suicide risk Summary of Hospital Course: Shortly pt is 31yo [place] descent male with self reported history of depression , h/o polysubstance abuse and dependence, two prior hospitalizations in this facility about two years ago, currently unemployed, lives with parents, was brought to the hospital for evaluation of depressive symptoms as well as possible suicidal ideation, no plan or intent of killing himself. at the time of first interaction with the patient, patient presented to be with good personal hygiene, not shaved, appears to be depressed, hopeless, difficulties to concentrate and stay focused, overall was pleasant and socially appropriate, fare ADLs. pt said that he was clean and sober for the past two years, pt said that he started to feel depressed "low energy" about two months ago "it was getting worse", pt started to go to his PMD and asked for Adderal, benzos, suboxone, as well as relapsed on the cocaine. pt said that he was using cocaine IV 50$ a day. pt said that this situation is making him very depressed and hopeless, pt said that he wanted to and that is why he came to the hospital. pt said that he does not hear voices or seeing things. denied paranoid ideation. pt also reported no anxiety symptoms. but as per previous report pt has TESFAYE. past psych h/o: pt had one suicidal attempt in 2014, overdosed on drugs, h/o opioid addiction. pt was going to [facility], but stopped going there two months ago, h/ o hypomanic episodes, was doing well on [place] asked to be resumed. Medical h/o: pt has h/o low testosteron, pt is on testosterone shots, hep C antibody positive but as per ID team from last admission, pt has no active disease. Education: pt reported to be in regular class and regular school "I was very smart, straight A student", no behavioral issues, had good childhood and a lot of friends. pt does not want his parents to be involved into his care. 11/01/16 01:00 11/01/16 01:00 Lab Results 11/01/16 07:45: TSH 3rd Generation 1.26 11/01/16 07:45: Fasting Glucose 93, Triglycerides 36, Cholesterol 112 L, LDL Cholesterol Direct 60, HDL Cholesterol 41 11/01/16 02:05: Urine Opiates Screen Negative, Urine Methadone Screen Negative, Ur Barbiturates Screen Negative, Ur Phencyclidine Scrn Negative, Ur Amphetamines Screen Negative, U Benzodiazepines Scrn Positive H, U Oth Cocaine Metabols Positive H, U Cannabinoids Screen Negative 11/01/16 01:45: Urine Color Yellow, Urine Appearance Clear, Urine pH 7.0, Ur Specific [place] 1.010, Urine Protein Negative, Urine Glucose (UA) Negative, Urine Ketones Negative, Urine Blood Negative, Urine Nitrate Negative, Urine Bilirubin Negative, Urine Urobilinogen 1.0 H, Ur Leukocyte Esterase Negative 11/01/16 01:00: Alcohol, Quantitative < 10 11/01/16 01:00: Salicylates < 1 L, Acetaminophen < 10.0 L 11/01/16 01:00: Sodium 138, Potassium 4.1, Chloride 100, Carbon Dioxide 29, Anion Gap 13, BUN 13, Creatinine 0.8, Est GFR ( Amer) > 60, Est GFR (Non- Af Amer) > 60, Random Glucose 77, Calcium 9.3, Total Bilirubin 0.4, AST 31, ALT 25, Alkaline Phosphatase 69, Total Creatine Kinase 103, Total Protein 6.9, Albumin 4.3, Globulin 2.5, Albumin/Globulin Ratio 1.7 11/01/16 01:00: WBC 8.4, RBC 4.29, Hgb 11.6 L, Hct 34.2 L, MCV 79.7 L, MCH 27.0 , MCHC 33.9, RDW 13.4, Plt Count 239, MPV 9.2, Gran % 65.7, Lymph % (Auto) 25.7 , [place] % (Auto) 6.0, Eos % (Auto) 2.4, Baso % (Auto) 0.2, Gran # 5.53, Lymph # 2.2, [place] # 0.5, Eos # 0.2, Baso # 0.02 Vital Signs Temp Pulse Resp BP Pulse Ox 11/01/16 06:54 97.3 F L 70 16 124/79 100 11/01/16 04:26 69 18 126/86 95 11/01/16 01:37 82 16 94 L 11/01/16 00:31 97.9 F 110 H 20 122/77 95 patient was stabilized on the following medications: methadone was d/c klonopin was weaned off [place] 300mg bid for mood stabilization wellbutrin 100mg po tid for mdd remeron 30mg hs prn for insomnia and depression neurontin 600mg tid for mood stabilization, cravings loperamide for possible diarrhea patient tolerated medications well, no side effects observed or reported, aims 0 , no EPS. Over the course of this hospitalization pt was attending groups, pt also had medication management, had therapeutic milieu. Overall pt improved significantly, pt's affect became brighter, pt was less depressed, has realistic future oriented plans, pt also does not appear to be psychotic, or anxious, pt was socially appropriate, no behavioral issues, pts insight improved as well and soon pt deemed to be ready for discharge. At the time of the discharge pt denied been depressed, denied thoughts of harming self or others, denied psychotic symptoms, and pt does not appeared to be psychotic, denied been anxious, was considered to pose no threat to self or others, will be following up at [facility], information about follow up appointment, time and address provided to the pt, it is patient responsibility to follow up with outpatient clinic, PMD as well as specialists (see note for more detailed information). In case pt will need to obtain results of studies pending at discharge pt was provided with contact information of Psychiatric Inpatient unit [phone] as well as Medical Record Department [phone]. Nicotine patch was offered Counseling about smoking and alcohol cessation provided [place] [facility] [place] was provided by the pt was provided with prescriptions for all of medications (please see medication reconciliation form) patient does not want to be on a knee methadone, naltrexone, benzodiazepines, because he patient wants to stay sober and clean. Pt was educated about safety plan in case of worsening of symptoms or in case of suicidal or homicidal ideation call 911 or go to the nearest ER, also was educated to take meds as prescribed and stay away from drugs, pt verbalized understanding. - Diagnosis (1) Bipolar II disorder Status: Chronic Priority: High (2) Polysubstance dependence Status: Chronic Priority: High - Final Diagnosis (DSM 5) Condition upon Discharge: STABLE Disposition: HOME/ ROUTINE Follow-up Treatment Plan: At the time of the discharge pt denied been depressed, denied thoughts of harming self or others, denied psychotic symptoms, and pt does not appeared to be psychotic, denied been anxious, was considered to pose no threat to self or others, will be following up at [facility], information about follow up appointment, time and address provided to the pt, it is patient responsibility to follow up with outpatient clinic, PMD as well as specialists (see note for more detailed information). In case pt will need to obtain results of studies pending at discharge pt was provided with contact information of Psychiatric Inpatient unit [phone] as well as Medical Record Department [phone]. Nicotine patch was offered Counseling about smoking and alcohol cessation provided AA meetings [place] [facility] [place] information was provided by the pt was provided with prescriptions for all of medications (please see medication reconciliation form) patient does not want to be on a knee methadone, naltrexone, benzodiazepines, because he patient wants to stay sober and clean. Pt was educated about safety plan in case of worsening of symptoms or in case of suicidal or homicidal ideation call 911 or go to the nearest ER, also was educated to take meds as prescribed and stay away from drugs, pt verbalized understanding. Prescriptions/Medication Reconciliation: buPROPion [Wellbutrin] 100 mg PO TID #45 tab Gabapentin [Neurontin] 600 mg PO TID #45 tab [place] Carbonate [[place] Carbonate 300MG] 300 mg PO BID #30 cap Mirtazapine [Remeron] 30 mg PO HS #14 tab Multivitamin Therapeutic Tab [Thera Tab] 1 tab PO 0800 #14 tab Nicotine 21 mg/24 hr [Nicoderm Cq] 1 patch TD DAILY #14 patch - Smoking Cessation Smoking Cessation Medication prescribed: Yes - Antipsychotic Medications Pt discharged on 2 or more routine antipsychotic medications: No
== END 2016-11-10 16:33 | disposition home or self-care (01) | DRG 430 ==
LOC: ED 00:11 → ERH 04:02 → PSYC 04:46
PROVIDERS: ADMIT Psychiatry & Neurology Psychiatry; ATTEND Psychiatry & Neurology Psychiatry
PROC: GZ3ZZZZ Medication Management (ICD-10-PCS; principal; 2016-11-01)
DX: F31.81 Bipolar II disorder (principal); F11.20 Opioid dependence, uncomplicated; F14.20 Cocaine dependence, uncomplicated; F13.20 Sedative, hypnotic or anxiolytic dependence, uncomplicated; F15.20 Other stimulant dependence, uncomplicated; B19.20 Unspecified viral hepatitis C without hepatic coma; F41.9 Anxiety disorder, unspecified; D64.9 Anemia, unspecified; F17.210 Nicotine dependence, cigarettes, uncomplicated; G47.00 Insomnia, unspecified

== ENCOUNTER 2017-06-22 03:37 | Emergency (ER) | payer MEDICAID ==
[2017-06-22 03:39] VITALS: BMI 23.7
== END 2017-06-22 03:54 | disposition left against medical advice (07) ==
LOC: ED 03:37
DX: Z02.89 Encounter for other administrative examinations (principal); R53.83 Other fatigue